=== PATIENT | male | born 1965 | race African-American/Black ===

== ENCOUNTER 2017-12-30 17:54 | Inpatient (IN) | payer OTHER ==
[2017-12-30 21:23] VITALS: BMI 24.2
[2017-12-30] MEDS ORDERED: MELATONIN 5 MG TABLETS PO PRN (22:00)
--- NOTE | 2017-12-30 23:35 | HP ---
CIWA Score - CIWA Score Nausea/Vomitin Muscle Tremors: 4-Moderate,w/Arms Extend Anxiety: 4-Mod. Anxious/Guarded Agitation: 1-Slight > Activity Paroxysmal Sweats: 1-Minimal Palms Moist Orientation: 1-Uncertain about Date Tacttile Disturbances: 0-None Auditory Disturbances: 0-None Visual Disturbances: 0-None Headache: 3-Moderate CIWA-Ar Total Score: 17 Admission ROS S - HPI Chief Complaint: Alcohol withdrawal symptoms Allergies/Adverse Reactions: Allergies Allergy/AdvReac Type Severity Reaction Status Date / Time No Known Allergies Allergy Verified 12/30/17 22:25 History of Present Illness: 52 years old male with a long history of alcohol dependence is seeking admission to detox. Patient has been in previous detox, last at [facility] in [place] and reports 20 days of sobriety when he was in long term. Patient has medical history of GERD, chronic back pain, anemia, brain aneurysm, depression and anxiety. Patient denies suicide attempt and suicidal ideation at this time. Exam Limitations: No Limitations - Ebola screening Have you traveled outside of the country in the last 21 days: No (N) Have you had contact with anyone from an Ebola affected area: No Have you been sick,other than usual withdrawal symptoms: No Do you have a fever: No - Review of Systems Constitutional: Chills, Loss of Appetite, Malaise, Night Sweats, Changes in sleep EENT: reports: No Symptoms Reported Respiratory: reports: No Symptoms reported Cardiac: reports: No Symptoms Reported GI: reports: Nausea, Poor Appetite, Poor Fluid Intake, Abdominal cramping : reports: No Symptoms Reported Musculoskeletal: reports: Back Pain, Joint Pain, Muscle Pain Integumentary: reports: Dryness Neuro: reports: Tremors Endocrine: reports: No Symptoms Reported Hematology: reports: No Symptoms Reported Psychiatric: reports: Anxious, Depressed Other Systems: Reviewed and Negative Patient History - Patient Medical History Hx Anemia: Yes (Not on medication) Hx Asthma: No Hx Chronic Obstructive Pulmonary Disease (COPD): No Hx Cancer: No Hx Cardiac Disorders: No Hx Congestive Heart Failure: No Hx Hypertension: No Hx Hypercholesterolemia: No Hx Pacemaker: No HX Cerebrovascular Accident: No Hx Seizures: No Hx Dementia: No Hx Diabetes: No Hx Gastrointestinal Disorders: Yes (Not on medication) Hx Liver Disease: No Hx Genitourinary Disorders: No Hx Sexually Transmitted Disorders: No Hx Renal Disease (ESRD): No Hx Thyroid Disease: No Hx Human Immunodeficiency Virus (HIV): No (NEGATIVE 2018) Hx Hepatitis C: No Hx Depression: Yes (Not on medication) Hx Suicide Attempt: No Hx Schizophrenia: No Other Medical History: Brain aneurysm, anxiety, chronic back pain- Not on medication - Patient Surgical History Past Surgical History: Yes Hx Neurologic Surgery: No Hx Cataract Extraction: No Hx Cardiac Surgery: No Hx Lung Surgery: No Hx Breast Surgery: No Hx Breast Biopsy: No Hx Abdominal Surgery: No Hx Appendectomy: No Hx Cholecystectomy: No Hx Genitourinary Surgery: No Hx Section: No Hx Orthopedic Surgery: Yes (ARTHROSCOPIC SX OF RIGHT KNEE DUE TO SPORT INJURY A TEEN) Other Surgical History: MEDIALSTERNOSCOPY DUE TO SEVERE ?GERD FEW YEARS AGO Anesthesia Reaction: No - PPD History Date: 07/03/14 - Smoking Cessation Smoking history: Current every day smoker Have you smoked in the past 12 months: Yes Aproximately how many cigarettes per day: 5 Cigars Per Day: 0 Hx Chewing Tobacco Use: No Initiated information on smoking cessation: Yes 'Breaking Loose' booklet given: 01/01/18 - Substances Abused Alcohol Route: Oral Frequency: Daily Amount used: 1 PINT Age of first use: 23 Date of Last Use: 12/30/17 K2 Route: Smoking Frequency: Daily Amount used: 3 JOINTS Age of first use: 49 Date of Last Use: 12/30/17 Family Disease History - Family Disease History Family Disease History: Heart Disease: Mother (EMPHESEMA/ASTHMA-), Respiratory: Mother, Other: Sister Admission Physical Exam [facility] - Vital Signs Vital Signs: Vital Signs - 24 hr 12/30/17 21:21 Temperature 98.9 F Pulse Rate 101 H Respiratory 18 Rate Blood Pressure 132/84 - Physical General Appearance: Yes: Appropriately Dressed, Tremorous, Irritable, Sweating, Anxious HEENTM: Yes: EOMI, Normal ENT Inspection, Normocephalic, Normal Voice, KELLY Respiratory: Yes: Lungs Clear, Normal Breath Sounds, No Respiratory Distress Breast: Yes: Breast Exam Deferred Cardiology: Yes: Tachycardia Abdominal: Yes: Normal Bowel Sounds, Soft Genitourinary: Yes: Within Normal Limits Back: Yes: Normal Inspection Musculoskeletal: Yes: Back pain, Muscle Pain, Muscle weakness Extremities: Yes: Tremors Neurological: Yes: Alert, Normal Mood/Affect, Normal Response Integumentary: Yes: Warm Lymphatic: Yes: Within Normal Limits - Diagnostic (1) Cannabis dependence Current Visit: No Status: Chronic (2) Cocaine dependence Current Visit: No Status: Chronic (3) Essential hypertension Current Visit: No Status: Chronic (4) Anxiety Current Visit: No Status: Suspected (5) Depression Current Visit: No Status: Acute Cleared for Admission [facility] - Detox or Rehab [facility] Level of Care: Medically Managed Detox Regimen/Protocol: Librium [facility] Breath Alcohol Content Breath Alcohol Content: 0 Urine Drug Screen - Results Drug Screen Negative: No Urine Drug Screen Results: BZO-Benzodiazepines, TCA-Tricyclic Antidepress
[2017-12-30] MEDS ORDERED: chlordiazePOXIDE HCL 25 MG CAPSULE PO ONE (23:45)
[2017-12-30] MEDS ORDERED: MENTHOL/PHENOL 1 EACH UD MM PRN (23:46)
[2017-12-30] MEDS ORDERED: P-EPHED 60MG/TRIPROLIDI 2.5MG TABLET PO PRN (23:46)
[2017-12-30] MEDS ORDERED: LOPERAMIDE HCL 2 MG CAPSULE PO PRN (23:46)
[2017-12-30] MEDS ORDERED: MAGNESIUM CITRATE 300 ML BOTTLE PO PRN (23:46)
[2017-12-30] MEDS ORDERED: guaiFENesin/D-METHORPHAN HB 10 ML UNIT-DOSE CUPS PO PRN (23:46)
[2017-12-30] MEDS ORDERED: NICOTINE POLACRILEX 2 MG GUM BC PRN (23:46)
[2017-12-30] MEDS ORDERED: MAGNESIUM HYDROX 2400MG/30ML ORAL SUSPENSION 30 ML CUP PO PRN (23:46)
[2017-12-30] MEDS ORDERED: MAG HYDROX/AL HYDROX/SIMETH 30 ML UNIT-DOSE CUP PO PRN (23:46)
[2017-12-31] MEDS: chlordiazePOXIDE HCL 25 MG CAPSULE PO PRN (02:05)
[2017-12-31] MEDS: ACETAMINOPHEN 325 MG TABLET (FP) PO PRN (02:06)
[2017-12-31] MEDS: chlordiazePOXIDE HCL 25 MG CAPSULE PO SCH ×6 (02:09→22:31)
--- NOTE | 2017-12-31 07:33 | CONSULT ---
[facility] Psychiatric Consult - Data Date of interview: 12/31/17 Admission source: [facility] Identifying data: This is 52 years old male, single, unemployed, domiciled, with no income, with no psychiatric hospitalization history, with a long history of alcohol dependence is repoprting Alcohol withdrawal symptoms and seeking admission to detox. Denies psychiatric hospitalization history , suicidal, homicidal ideation. Substance Abuse History: Smoking history: Current every day smoker. Have you smoked in the past 12 months: Yes. Aproximately how many cigarettes per day: 5. Cigars Per Day: 0. Hx Chewing Tobacco Use: No. - Substances Abused. Alcohol. Route: Oral. Frequency: Daily. Amount used: 1 PINT. Age of first use: 23. Date of Last Use: 12/30/17. K2. Route: Smoking. Frequency: Daily. Amount used: 3 JOINTS. Age of first use: 49. Date of Last Use: Medical History: HTN, Brain Aneurism history, GERD Psychiatric History: Patient reports history of depression and anxiety, reports no medications taking prior to admission, asking for medications aid for his insomnia, reports good response to serouel in the past, denies suicidal and homicidal history. Physical/Sexual Abuse/Trauma History: Denies Additional Comment: Seroquel 100mg po qhs Mental Status Exam - Mental Status Exam Alert and Oriented to: Person Cognitive Function: Fair Patient Appearance: Unkempt Mood: Angry, Anxious Affect: Mood Congruent Patient Behavior: Guarded Speech Pattern: Appropriate Voice Loudness: Mildly Loud Thought Process: Goal Oriented Thought Disorder: Being Controlled Hallucinations: Denies Suicidal Ideation: Denies Homicidal Ideation: Denies Insight/Judgement: Fair Sleep: Difficulty falling asleep Appetite: Fair Muscle strength/Tone: Normal Additional Comments: Seroquel 100mg po qhs Psychiatric Findings - Problem List ([place] 1, 2,3) (1) Alcohol dependence Current Visit: No Status: Active (2) Gastroesophageal reflux disease Current Visit: No Status: Active (3) Cocaine dependence with cocaine-induced mood disorder Current Visit: No Status: Acute (4) Drug-induced mood disorder Current Visit: No Status: Acute (5) HTN (hypertension) Current Visit: No Status: Acute (6) Cannabis dependence Current Visit: No Status: Chronic (7) Essential hypertension Current Visit: No Status: Chronic - Initial Treatment Plan Initial Treatment Plan: Seroquel 100mg po qhs
--- NOTE | 2017-12-31 10:05 | PN ---
BHS CIWA - CIWA Score Nausea/Vomitin Muscle Tremors: 3 Anxiety: 3 Agitation: 2 Paroxysmal Sweats: 1-Minimal Palms Moist Orientation: 0-Oriented Tacttile Disturbances: 1-Very Mild Itch/Numbness Auditory Disturbances: 1-Very Mild Visual Disturbances: 0-None Headache: 2-Mild CIWA-Ar Total Score: 16 BHS Progress Note (SOAP) Subjective: alert,irritable,anxious,,interrupted,pain in the body and back,tremor Objective: 12/31/17 10:03 Vital Signs Temperature 97.9 F 12/31/17 09:25 Pulse Rate 79 12/31/17 09:25 Respiratory Rate 18 12/31/17 09:25 Blood Pressure 134/71 12/31/17 09:25 O2 Sat by Pulse Oximetry (%) 12/31/17 10:04 withdrawal symptom Assessment: 12/31/17 10:05 withdrawal symptom labs pending Plan: continue detox
[2017-12-31 10:37] LABS: CHLORIDE 108 mmol/L (98-107); POTASSIUM 4.4 mmol/L (3.5-5.1); SODIUM 146 mmol/L (136-145)
[2017-12-31 10:52] LABS: ALBUMIN 3.1 g/dl (3.4-5.0); ALK PHOS 45 U/L (45-117); ANION GAP 9 MMOL/L (8-16); BILIRUBIN,TOTAL 0.3 mg/dL (0.2-1.0); BLOOD UREA NITROGEN 17 mg/dL (7-18); CALCIUM 8.6 mg/dL (8.5-10.1); CO2 29 mmol/L (21-32); CREATININE 0.8 mg/dL (0.7-1.3); GLUCOSE,RANDOM 84 mg/dL (74-106); SGOT/AST 22 U/L (15-37); SGPT/ALT 25 U/L (12-78); TOT PROT 6.1 g/dl (6.4-8.2)
[2017-12-31] MEDS: PRENATAL VITAMINS W/ FOLIC ACID TABLET (FP) PO SCH (10:56)
[2017-12-31] MEDS: NICOTINE 14 MG/24 HOURS TOPICAL PATCH TD SCH (10:57)
[2017-12-31 11:07] LABS: HEMOGLOBIN 7.8 GM/dL (11.7-16.9); MCHC 29.9 g/dl (32.0-35.9); MEAN CELL VOLUME 63.1 fl (80-96); MEAN PLT VOLUME 8.4 fl (7.5-11.1); PLATELET COUNT 488 K/MM3 (134-434); RBC 4.11 M/mm3 (4.00-5.60); RDW 22.8 % (11.9-15.9); WHITE BLOOD COUNT 8.4 K/mm3 (4.0-10.0)
[2017-12-31 11:17] LABS: MCH 18.9 pg (25.7-33.7)
[2017-12-31] MEDS: IBUPROFEN 400 MG TABLET (FP) PO PRN (11:51)
[2017-12-31 15:59] LABS: URINE APPEARANCE CLEAR; URINE BILIRUBIN NEGATIVE (<2.0 mg/dL); URINE COLOR YELLOW; URINE GLUCOSE (UA) NEGATIVE (NEGATIVE); URINE KETONE NEGATIVE (NEGATIVE); URINE LEUK ESTERASE NEGATIVE (NEGATIVE); URINE NITRITE NEGATIVE (NEGATIVE); URINE UROBILINOGEN NEGATIVE mg/dL (0.2-1.0)
--- NOTE | 2017-12-31 16:02 | EKG ---
Test Reason : Blood Pressure : / mmHG Vent. Rate : 068 BPM Atrial Rate : 068 BPM P-R Int : 132 ms QRS Dur : 096 ms QT Int : 388 ms P-R-T Axes : 048 055 067 degrees QTc Int : 412 ms NORMAL SINUS RHYTHM VOLTAGE CRITERIA FOR LEFT VENTRICULAR HYPERTROPHY ABNORMAL ECG NO PREVIOUS ECGS AVAILABLE Confirmed by Palma Reeves ([id number]) on 12/31/2017 4:01:29 PM Referred By: Confirmed By:Palma Reeves
[2017-12-31 16:15] LABS: URINE PROTEIN 1+ (NEGATIVE)
[2017-12-31 16:17] LABS: URINE MUCUS RARE
[2017-12-31] MEDS: QUEtiapine FUMARATE 100 MG TABLET (FP) PO SCH (22:31)
[2017-12-31] MEDS: THIAMINE HCL 100 MG TABLET (FP) PO SCH (22:31)
[2018-01-01] MEDS: chlordiazePOXIDE 5 MG CAPSULE PO SCH ×4 (06:20→21:59)
[2018-01-01] MEDS ORDERED: hydrOXYzine PAMOATE 50 MG CAPSULE (FP) PO PRN (10:08)
--- NOTE | 2018-01-01 10:47 | PN ---
S CIWA - CIWA Score Nausea/Vomitin Muscle Tremors: 3 Anxiety: 3 Agitation: 3 Paroxysmal Sweats: 1-Minimal Palms Moist Orientation: 0-Oriented Tacttile Disturbances: 1-Very Mild Itch/Numbness Auditory Disturbances: 1-Very Mild Visual Disturbances: 0-None Headache: 2-Mild CIWA-Ar Total Score: 17 BHS Progress Note (SOAP) Subjective: alert,irritable,anxious,interrupted sleep,history of gerd Objective: 01/01/18 10:44 Vital Signs Temperature 97.0 F L 01/01/18 09:59 Pulse Rate 69 01/01/18 09:59 Respiratory Rate 18 01/01/18 09:59 Blood Pressure 113/65 01/01/18 09:59 O2 Sat by Pulse Oximetry (%) Laboratory Last Values WBC 8.4 K/mm3 (4.0-10.0) 12/31/17 07:00 RBC 4.11 M/mm3 (4.00-5.60) 12/31/17 07:00 Hgb 7.8 GM/dL (11.7-16.9) L 12/31/17 07:00 Hct 26.0 % (35.4-49) L 12/31/17 07:00 MCV 63.1 fl (80-96) L 12/31/17 07:00 MCH 18.9 pg (25.7-33.7) L 12/31/17 07:00 MCHC 29.9 g/dl (32.0-35.9) L 12/31/17 07:00 RDW 22.8 % (11.9-15.9) H 12/31/17 07:00 Plt Count 488 K/MM3 (134-434) H 12/31/17 07:00 MPV 8.4 fl (7.5-11.1) D 12/31/17 07:00 Sodium 146 mmol/L (136-145) H 12/31/17 07:00 Potassium 4.4 mmol/L (3.5-5.1) 12/31/17 07:00 Chloride 108 mmol/L (98-107) H 12/31/17 07:00 Carbon Dioxide 29 mmol/L (21-32) 12/31/17 07:00 Anion Gap 9 MMOL/L (8-16) 12/31/17 07:00 BUN 17 mg/dL (7-18) 12/31/17 07:00 Creatinine 0.8 mg/dL (0.7-1.3) 12/31/17 07:00 Creat Clearance w eGFR > 60 (>60) 12/31/17 07:00 Random Glucose 84 mg/dL (74-106) 12/31/17 07:00 Calcium 8.6 mg/dL (8.5-10.1) 12/31/17 07:00 Total Bilirubin 0.3 mg/dL (0.2-1.0) 12/31/17 07:00 AST 22 U/L (15-37) 12/31/17 07:00 ALT 25 U/L (12-78) 12/31/17 07:00 Alkaline Phosphatase 45 U/L (45-117) 12/31/17 07:00 Total Protein 6.1 g/dl (6.4-8.2) L 12/31/17 07:00 Albumin 3.1 g/dl (3.4-5.0) L 12/31/17 07:00 Urine Color Yellow 12/31/17 11:00 Urine Appearance Clear 12/31/17 11:00 Urine pH 7.0 (5.0-8.0) 12/31/17 11:00 Ur Specific [place] 1.031 (1.001-1.035) 12/31/17 11:00 Urine Protein 1+ (NEGATIVE) H 12/31/17 11:00 Urine Glucose (UA) Negative (NEGATIVE) 12/31/17 11:00 Urine Ketones Negative (NEGATIVE) 12/31/17 11:00 Urine Blood Negative (NEGATIVE) 12/31/17 11:00 Urine Nitrite Negative (NEGATIVE) 12/31/17 11:00 Urine Bilirubin Negative (<2.0 mg/dL) 12/31/17 11:00 Urine Urobilinogen Negative mg/dL (0.2-1.0) 12/31/17 11:00 Ur Leukocyte Esterase Negative (NEGATIVE) 12/31/17 11:00 Urine WBC (Auto) 2 /hpf (3-5) 12/31/17 11:00 Urine RBC (Auto) 1 /hpf (0-3) 12/31/17 11:00 Urine Mucus Rare 12/31/17 11:00 RPR Titer Nonreactive (NONREACTIVE) 12/31/17 07:00 Assessment: 01/01/18 10:46 withdrawal symptom Plan: continue detox,ferrous sulfate 325 mgs po tid,zantac 150 mgs po bid
[2018-01-01] MEDS: PRENATAL VITAMINS W/ FOLIC ACID TABLET (FP) PO SCH (10:50)
[2018-01-01] MEDS: NICOTINE 14 MG/24 HOURS TOPICAL PATCH TD SCH (10:51)
[2018-01-01] MEDS: IBUPROFEN 400 MG TABLET (FP) PO PRN (10:53)
[2018-01-01] MEDS: RANITIDINE HCL 150 MG TABLET (FP) PO SCH ×2 (11:30→21:59)
[2018-01-01] MEDS: FERROUS SO4 325 MG TABLET (FP) PO SCH ×2 (13:00→17:37)
[2018-01-01] MEDS: THIAMINE HCL 100 MG TABLET (FP) PO SCH (21:59)
[2018-01-01] MEDS: QUEtiapine FUMARATE 100 MG TABLET (FP) PO SCH (21:59)
[2018-01-02] MEDS: chlordiazePOXIDE HCL 10 MG CAPSULE PO SCH ×4 (05:51→23:22)
[2018-01-02] MEDS: FERROUS SO4 325 MG TABLET (FP) PO SCH ×3 (07:36→20:25)
[2018-01-02] MEDS: PRENATAL VITAMINS W/ FOLIC ACID TABLET (FP) PO SCH (11:27)
[2018-01-02] MEDS: NICOTINE 14 MG/24 HOURS TOPICAL PATCH TD SCH (11:27)
--- NOTE | 2018-01-02 11:34 | PN ---
S CIWA - CIWA Score Nausea/Vomitin Muscle Tremors: 2 Anxiety: 2 Agitation: 2 Paroxysmal Sweats: 2 Orientation: 0-Oriented Tacttile Disturbances: 2-Mild Itch/Numbness/Burn Auditory Disturbances: 1-Very Mild Visual Disturbances: 1-Very Mild Sensitivity Headache: 2-Mild CIWA-Ar Total Score: 16 S Progress Note (SOAP) Subjective: Irritability, agitation, interrupted sleep, muscle aches Objective: 01/02/18 11:33 Vital Signs 01/02/18 01/02/18 06:00 09:19 Temperature 97.7 F 97.9 F Pulse Rate 70 84 Respiratory 18 18 Rate Blood Pressure 138/82 144/98 Laboratory Last Values WBC 8.4 K/mm3 (4.0-10.0) 12/31/17 07:00 RBC 4.11 M/mm3 (4.00-5.60) 12/31/17 07:00 Hgb 7.8 GM/dL (11.7-16.9) L 12/31/17 07:00 Hct 26.0 % (35.4-49) L 12/31/17 07:00 MCV 63.1 fl (80-96) L 12/31/17 07:00 MCH 18.9 pg (25.7-33.7) L 12/31/17 07:00 MCHC 29.9 g/dl (32.0-35.9) L 12/31/17 07:00 RDW 22.8 % (11.9-15.9) H 12/31/17 07:00 Plt Count 488 K/MM3 (134-434) H 12/31/17 07:00 MPV 8.4 fl (7.5-11.1) D 12/31/17 07:00 Sodium 146 mmol/L (136-145) H 12/31/17 07:00 Potassium 4.4 mmol/L (3.5-5.1) 12/31/17 07:00 Chloride 108 mmol/L (98-107) H 12/31/17 07:00 Carbon Dioxide 29 mmol/L (21-32) 12/31/17 07:00 Anion Gap 9 MMOL/L (8-16) 12/31/17 07:00 BUN 17 mg/dL (7-18) 12/31/17 07:00 Creatinine 0.8 mg/dL (0.7-1.3) 12/31/17 07:00 Creat Clearance w eGFR > 60 (>60) 12/31/17 07:00 Random Glucose 84 mg/dL (74-106) 12/31/17 07:00 Calcium 8.6 mg/dL (8.5-10.1) 12/31/17 07:00 Total Bilirubin 0.3 mg/dL (0.2-1.0) 12/31/17 07:00 AST 22 U/L (15-37) 12/31/17 07:00 ALT 25 U/L (12-78) 12/31/17 07:00 Alkaline Phosphatase 45 U/L (45-117) 12/31/17 07:00 Total Protein 6.1 g/dl (6.4-8.2) L 12/31/17 07:00 Albumin 3.1 g/dl (3.4-5.0) L 12/31/17 07:00 Urine Color Yellow 12/31/17 11:00 Urine Appearance Clear 12/31/17 11:00 Urine pH 7.0 (5.0-8.0) 12/31/17 11:00 Ur Specific [place] 1.031 (1.001-1.035) 12/31/17 11:00 Urine Protein 1+ (NEGATIVE) H 12/31/17 11:00 Urine Glucose (UA) Negative (NEGATIVE) 12/31/17 11:00 Urine Ketones Negative (NEGATIVE) 12/31/17 11:00 Urine Blood Negative (NEGATIVE) 12/31/17 11:00 Urine Nitrite Negative (NEGATIVE) 12/31/17 11:00 Urine Bilirubin Negative (<2.0 mg/dL) 12/31/17 11:00 Urine Urobilinogen Negative mg/dL (0.2-1.0) 12/31/17 11:00 Ur Leukocyte Esterase Negative (NEGATIVE) 12/31/17 11:00 Urine WBC (Auto) 2 /hpf (3-5) 12/31/17 11:00 Urine RBC (Auto) 1 /hpf (0-3) 12/31/17 11:00 Urine Mucus Rare 12/31/17 11:00 RPR Titer Nonreactive (NONREACTIVE) 12/31/17 07:00 Labs noted Assessment: 08/25/18 11:33 Withdrawal sx Plan: Continue detox
[2018-01-02] MEDS: RANITIDINE HCL 150 MG TABLET (FP) PO SCH ×2 (20:24→23:22)
[2018-01-02] MEDS: chlordiazePOXIDE HCL 25 MG CAPSULE PO PRN (23:20)
[2018-01-02] MEDS: QUEtiapine FUMARATE 100 MG TABLET (FP) PO SCH (23:22)
[2018-01-02] MEDS: THIAMINE HCL 100 MG TABLET (FP) PO SCH (23:22)
[2018-01-03] MEDS: FERROUS SO4 325 MG TABLET (FP) PO SCH ×3 (08:30→18:12)
[2018-01-03] MEDS: RANITIDINE HCL 150 MG TABLET (FP) PO SCH ×2 (10:30→22:32)
[2018-01-03] MEDS: NICOTINE 14 MG/24 HOURS TOPICAL PATCH TD SCH (10:30)
[2018-01-03] MEDS: PRENATAL VITAMINS W/ FOLIC ACID TABLET (FP) PO SCH (10:30)
[2018-01-03] MEDS: IBUPROFEN 400 MG TABLET (FP) PO PRN (10:32)
--- NOTE | 2018-01-03 12:50 | PN ---
BHS Progress Note (SOAP) Subjective: States feels better. Minimal tremors. Denies nausea/vomiting/diarrhea/headache. Objective: Alert and oriented x 3. Respirations quiet and unlabored. Gait steady. Lab Results WBC 8.4 K/mm3 (4.0-10.0) 12/31/17 07:00 RBC 4.11 M/mm3 (4.00-5.60) 12/31/17 07:00 Hgb 7.8 GM/dL (11.7-16.9) L 12/31/17 07:00 Hct 26.0 % (35.4-49) L 12/31/17 07:00 MCV 63.1 fl (80-96) L 12/31/17 07:00 MCHC 29.9 g/dl (32.0-35.9) L 12/31/17 07:00 RDW 22.8 % (11.9-15.9) H 12/31/17 07:00 Plt Count 488 K/MM3 (134-434) H 12/31/17 07:00 Sodium 146 mmol/L (136-145) H 12/31/17 07:00 Potassium 4.4 mmol/L (3.5-5.1) 12/31/17 07:00 Chloride 108 mmol/L (98-107) H 12/31/17 07:00 Carbon Dioxide 29 mmol/L (21-32) 12/31/17 07:00 Anion Gap 9 MMOL/L (8-16) 12/31/17 07:00 BUN 17 mg/dL (7-18) 12/31/17 07:00 Creatinine 0.8 mg/dL (0.7-1.3) 12/31/17 07:00 Random Glucose 84 mg/dL (74-106) 12/31/17 07:00 Calcium 8.6 mg/dL (8.5-10.1) 12/31/17 07:00 Vital Signs 01/03/18 01/03/18 01/03/18 06:00 06:30 10:00 Temperature 97.3 F L 98.8 F Pulse Rate 67 75 Respiratory 18 18 16 Rate Blood Pressure 120/72 123/88 Labs and v/s reviewed. 01/03/18 12:47 Assessment: 01/03/18 12:48 Alcohol withdrawal symptoms. Plan: Continue detox protocol.
[2018-01-03] MEDS: THIAMINE HCL 100 MG TABLET (FP) PO SCH (22:32)
[2018-01-03] MEDS: QUEtiapine FUMARATE 100 MG TABLET (FP) PO SCH (22:32)
[2018-01-03] MEDS: ACETAMINOPHEN 325 MG TABLET (FP) PO PRN (22:33)
[2018-01-04] MEDS: IBUPROFEN 400 MG TABLET (FP) PO PRN (06:59)
[2018-01-04] MEDS: FERROUS SO4 325 MG TABLET (FP) PO SCH ×2 (07:06→13:05)
--- NOTE | 2018-01-04 09:06 | PN ---
S Progress Note (SOAP) Subjective: alert,no complaint Objective: 01/04/18 09:04 Vital Signs Temperature 98.1 F 01/04/18 07:43 Pulse Rate 72 01/04/18 07:43 Respiratory Rate 18 01/04/18 07:43 Blood Pressure 150/97 01/04/18 07:43 O2 Sat by Pulse Oximetry (%) Assessment: 01/04/18 09:04 detox completed,no withdrawal symptom Plan: discharge today,follow up with after are program as arrangement
--- NOTE | 2018-01-04 09:09 | DS ---
[facility] Detox Discharge Summary Admission Date: 12/30/17 Discharge Date: 01/04/18 - History Present History: Alcohol Dependence, Cannabis Dependence, Cocaine Dependence Additional Comments: follow up with after care program as arrangement,revelation Pertinent Past History: essential hypertension gerd depression drug induced mood disorder - Physical Exam Results Vital Signs: Vital Signs Temperature 98.1 F 01/04/18 07:43 Pulse Rate 72 01/04/18 07:43 Respiratory Rate 18 01/04/18 07:43 Blood Pressure 150/97 01/04/18 07:43 O2 Sat by Pulse Oximetry (%) Pertinent Admission Physical Exam Findings: withdrawal signs and symptom Vital Signs Temperature 98.1 F 01/04/18 07:43 Pulse Rate 72 01/04/18 07:43 Respiratory Rate 18 01/04/18 07:43 Blood Pressure 150/97 01/04/18 07:43 O2 Sat by Pulse Oximetry (%) Laboratory Last Values WBC 8.4 K/mm3 (4.0-10.0) 12/31/17 07:00 RBC 4.11 M/mm3 (4.00-5.60) 12/31/17 07:00 Hgb 7.8 GM/dL (11.7-16.9) L 12/31/17 07:00 Hct 26.0 % (35.4-49) L 12/31/17 07:00 MCV 63.1 fl (80-96) L 12/31/17 07:00 MCH 18.9 pg (25.7-33.7) L 12/31/17 07:00 MCHC 29.9 g/dl (32.0-35.9) L 12/31/17 07:00 RDW 22.8 % (11.9-15.9) H 12/31/17 07:00 Plt Count 488 K/MM3 (134-434) H 12/31/17 07:00 MPV 8.4 fl (7.5-11.1) D 12/31/17 07:00 Sodium 146 mmol/L (136-145) H 12/31/17 07:00 Potassium 4.4 mmol/L (3.5-5.1) 12/31/17 07:00 Chloride 108 mmol/L (98-107) H 12/31/17 07:00 Carbon Dioxide 29 mmol/L (21-32) 12/31/17 07:00 Anion Gap 9 MMOL/L (8-16) 12/31/17 07:00 BUN 17 mg/dL (7-18) 12/31/17 07:00 Creatinine 0.8 mg/dL (0.7-1.3) 12/31/17 07:00 Creat Clearance w eGFR > 60 (>60) 12/31/17 07:00 Random Glucose 84 mg/dL (74-106) 12/31/17 07:00 Calcium 8.6 mg/dL (8.5-10.1) 12/31/17 07:00 Total Bilirubin 0.3 mg/dL (0.2-1.0) 12/31/17 07:00 AST 22 U/L (15-37) 12/31/17 07:00 ALT 25 U/L (12-78) 12/31/17 07:00 Alkaline Phosphatase 45 U/L (45-117) 12/31/17 07:00 Total Protein 6.1 g/dl (6.4-8.2) L 12/31/17 07:00 Albumin 3.1 g/dl (3.4-5.0) L 12/31/17 07:00 Urine Color Yellow 12/31/17 11:00 Urine Appearance Clear 12/31/17 11:00 Urine pH 7.0 (5.0-8.0) 12/31/17 11:00 Ur Specific [place] 1.031 (1.001-1.035) 12/31/17 11:00 Urine Protein 1+ (NEGATIVE) H 12/31/17 11:00 Urine Glucose (UA) Negative (NEGATIVE) 12/31/17 11:00 Urine Ketones Negative (NEGATIVE) 12/31/17 11:00 Urine Blood Negative (NEGATIVE) 12/31/17 11:00 Urine Nitrite Negative (NEGATIVE) 12/31/17 11:00 Urine Bilirubin Negative (<2.0 mg/dL) 12/31/17 11:00 Urine Urobilinogen Negative mg/dL (0.2-1.0) 12/31/17 11:00 Ur Leukocyte Esterase Negative (NEGATIVE) 12/31/17 11:00 Urine WBC (Auto) 2 /hpf (3-5) 12/31/17 11:00 Urine RBC (Auto) 1 /hpf (0-3) 12/31/17 11:00 Urine Mucus Rare 12/31/17 11:00 RPR Titer Nonreactive (NONREACTIVE) 12/31/17 07:00 - Treatment Hospital Course: Detox Protocol Followed, Detoxed Safely, Responded well, Discharged Condition Good, Rehab Referral Accepted Patient has Accepted a Rehab Referral to: [facility] - Medication Discharge Medications: Ambulatory Orders Quetiapine Fumarate [Seroquel] 100 mg PO HS #30 tablet 12/31/17 - Diagnosis (1) Alcohol dependence with uncomplicated withdrawal Current Visit: Yes Status: Acute (2) Cocaine dependence with cocaine-induced mood disorder Current Visit: No Status: Acute (3) Depression Current Visit: No Status: Acute (4) Drug-induced mood disorder Current Visit: No Status: Acute (5) Cannabis dependence Current Visit: No Status: Chronic (6) Essential hypertension Current Visit: No Status: Chronic (7) History of anemia Current Visit: Yes Status: Acute (8) GERD (gastroesophageal reflux disease) Current Visit: Yes Status: Acute - AMA Did Patient Leave Against Medical Advice: No
[2018-01-04] MEDS: PRENATAL VITAMINS W/ FOLIC ACID TABLET (FP) PO SCH (10:34)
[2018-01-04] MEDS: RANITIDINE HCL 150 MG TABLET (FP) PO SCH (10:35)
[2018-01-04] MEDS: NICOTINE 14 MG/24 HOURS TOPICAL PATCH TD SCH (10:35)
[2018-01-04 13:11] VITALS: BP 135/72; PULSE 84; TEMP 98.4
== END 2018-01-04 13:05 | disposition other institution (70) | DRG 774 ==
LOC: YASAS 17:54 → Y6N 22:44
PROVIDERS: ADMIT Surgery; ATTEND Surgery
PROC: HZ2ZZZZ Detoxification Services for Substance Abuse Treatment (ICD-10-PCS; principal; 2017-12-30)
DX: F10.230 Alcohol dependence with withdrawal, uncomplicated (principal); F14.24 Cocaine dependence with cocaine-induced mood disorder; F12.20 Cannabis dependence, uncomplicated; F17.213 Nicotine dependence, cigarettes, with withdrawal; F19.24 Other psychoactive substance dependence with psychoactive substance-induced mood disorder; F32.9 Major depressive disorder, single episode, unspecified; F41.9 Anxiety disorder, unspecified; I10 Essential (primary) hypertension; K21.9 Gastro-esophageal reflux disease without esophagitis; D64.9 Anemia, unspecified; M54.9 Dorsalgia, unspecified; G89.29 Other chronic pain; Z86.79 Personal history of other diseases of the circulatory system; Z59.0 Homelessness
CPT/HCPCS: 36415; 80053; 81003; 81015; 85027; 86593; 93005; 93010

== ENCOUNTER 2018-01-04 13:10 | Inpatient (IN) | payer OTHER ==
[2018-01-04 14:02] VITALS: BMI 24.2
--- NOTE | 2018-01-04 15:30 | HP ---
Psychiatrist Admission - Data Date of interview: 01/04/18 Admission source: [address] [place] [address] detox Identifying data: This si the first admsission to [address] [place] [address] for this 52 yo single no children,homeless,no financial support. Medical History: Significant for HTN,GERD,Anemia. Psychiatric History: Patient reports depression,anxiety for a few years,but didnt addressed his issues to the professionals. No psychiatric hospitalizations.No history of suicidality.patient is not willing to take psychotropic medications. Physical/Sexual Abuse/Trauma History: not willing to discuss at this time. Vital Signs: Vital Signs - 24 hr 01/04/18 13:38 Temperature 99 F Pulse Rate 85 Respiratory 18 Rate Blood Pressure 124/83 Allergies/Adverse Reactions: Allergies Allergy/AdvReac Type Severity Reaction Status Date / Time No Known Allergies Allergy Verified 12/30/17 22:25 Date of last physical exam: 12/30/17 Concur with the findings of this exam: Yes - Substance Abuse/Tx History Hx Alcohol Use: Yes (reports drinking since 23 yo,1 pint of vodka daily) Hx Substance Use: Yes (K2 since 49 yo,2 joints daily) Substance Use Type: Alcohol, Cocaine, Marijuana Hx Substance Use Treatment: Yes (completed 28 days inpatient at [facility] about 4 yo) Mental Status Exam - Mental Status Exam Alert and Oriented to: Time, Place, Person Cognitive Function: Grossly Intact Patient Appearance: Unkempt Mood: Irritable Affect: Mood Congruent, Labile Patient Behavior: Cooperative Speech Pattern: Clear Voice Loudness: Normal Thought Process: Goal Oriented Thought Disorder: Not Present Hallucinations: Denies Suicidal Ideation: Denies Homicidal Ideation: Denies Insight/Judgement: Poor Sleep: Fair Appetite: Good Muscle strength/Tone: Normal Gait/Station: Normal Psychiatric Findings - Problem List ([place] 1, 2,3) (1) Alcohol dependence Current Visit: Yes Status: Chronic (2) Cannabis dependence Current Visit: Yes Status: Chronic (3) Cocaine dependence Current Visit: Yes Status: Chronic (4) Essential hypertension Current Visit: Yes Status: Chronic (5) Gastroesophageal reflux disease Current Visit: Yes Status: Chronic (6) HTN (hypertension) Current Visit: Yes Status: Chronic Qualifiers: Hypertension type: essential hypertension Qualified Code(s): I10 - Essential (primary) hypertension - Initial Treatment Plan Initial Treatment Plan: Will monitor progress.
[2018-01-04] MEDS ORDERED: hydrOXYzine PAMOATE 50 MG CAPSULE (FP) PO PRN (16:38)
[2018-01-04] MEDS ORDERED: guaiFENesin/D-METHORPHAN HB 10 ML UNIT-DOSE CUPS PO PRN (16:38)
[2018-01-04] MEDS ORDERED: MENTHOL/PHENOL 1 EACH UD MM PRN (16:38)
[2018-01-04] MEDS ORDERED: NICOTINE POLACRILEX 2 MG GUM BUC PRN (16:38)
[2018-01-04] MEDS ORDERED: MAGNESIUM HYDROX 2400MG/30ML ORAL SUSPENSION 30 ML CUP PO PRN (16:38)
[2018-01-04] MEDS ORDERED: LOPERAMIDE HCL 2 MG CAPSULE PO PRN (16:38)
[2018-01-04] MEDS ORDERED: P-EPHED 60MG/TRIPROLIDI 2.5MG TABLET PO PRN (16:38)
[2018-01-04] MEDS ORDERED: MAGNESIUM CITRATE 300 ML BOTTLE PO PRN (16:38)
[2018-01-04] MEDS ORDERED: MAG HYDROX/AL HYDROX/SIMETH 30 ML UNIT-DOSE CUP PO PRN (16:38)
--- NOTE | 2018-01-04 16:38 | HP ---
[facility] Rehab Assess/Revision - Admission History Admitted to Rehab from: [facility] Date of Admission to Rehab: 01/04/18 - Vital signs Vital Signs: Vital Signs Period Temp Pulse Resp BP Sys/[place]son Pulse Ox Last 24 Hr 99 F 85 18 124/83 - Findings Detox History & Physical reviewed: Yes Concur with findings: Yes Comments/Additional Findings: for rehab as protocol Inpatient Rehab Admission - Initial Determination Are CD services needed?: Yes Free of communicable disease: Yes Not in need of hospitalization: Yes - Rehab Admission Criteria Previous failed treatment: Yes Poor recovery environment: Yes Comorbidities: Yes Lacks judgement: No Patient is meeting Inpatient Rehab admission criteria:: Yes
[2018-01-04] MEDS ORDERED: QUEtiapine FUMARATE 100 MG TABLET (FP) PO SCH (22:00)
[2018-01-04] MEDS: QUEtiapine FUMARATE 100 MG TABLET (FP) PO SCH (22:12)
[2018-01-04] MEDS: THIAMINE HCL 100 MG TABLET (FP) PO SCH (22:13)
[2018-01-05] MEDS: IBUPROFEN 400 MG TABLET (FP) PO PRN (06:43)
[2018-01-05] MEDS: PRENATAL VITAMINS W/ FOLIC ACID TABLET (FP) PO SCH (10:26)
--- NOTE | 2018-01-05 13:30 | PN ---
S Progress Note Note: Vital Signs Temperature 99.5 F 01/05/18 07:17 Pulse Rate 78 01/05/18 07:17 Respiratory Rate 18 01/05/18 07:17 Blood Pressure 134/90 01/05/18 07:17 O2 Sat by Pulse Oximetry (%) Patient c/o of acid reflux, ongoing hiccups, and back pain. patient Aox3 no distress, anxious no adventitious breath sounds BS x 4, belching full ROM ambulating in the unit -GERD - abnormal labs = hemoglobin 7.8 : repeat labs - back pain Plan: protonix BID lidocaine patch flexeril PRN increase fluids repeat CBC continue to monitor
[2018-01-05] MEDS: CYCLOBENZAPRINE HCL 10 MG TABLET (FP) PO SCH ×2 (14:31→21:39)
[2018-01-05] MEDS: LIDOCAINE 5% TOPICAL PATCH TP SCH (14:31)
[2018-01-05] MEDS: PANTOPRAZOLE 20 MG TABLET (FP) PO SCH (21:39)
[2018-01-05] MEDS: THIAMINE HCL 100 MG TABLET (FP) PO SCH (21:39)
[2018-01-05] MEDS: QUEtiapine FUMARATE 100 MG TABLET (FP) PO SCH (21:39)
[2018-01-05] MEDS: LIDOCAINE PATCH REMOVAL MC SCH (21:40)
[2018-01-06] MEDS: IBUPROFEN 400 MG TABLET (FP) PO PRN (02:47)
[2018-01-06] MEDS: CYCLOBENZAPRINE HCL 10 MG TABLET (FP) PO SCH ×3 (06:26→21:49)
[2018-01-06 10:04] LABS: BASO % 0.8 % (0-2.0); EOS % 1.2 % (0-4.5); HEMATOCRIT 26.3 % (35.4-49); HEMOGLOBIN 7.6 GM/dL (11.7-16.9); LYMPH % 14.8 % (8-40); MCHC 28.8 g/dl (32.0-35.9); MEAN CELL VOLUME 64.5 fl (80-96); MEAN PLT VOLUME 8.3 fl (7.5-11.1); MONO % 8.7 % (3.8-10.2); NEUT % 74.5 % (42.8-82.8); PLATELET COUNT 442 K/MM3 (134-434); RBC 4.08 M/mm3 (4.00-5.60); RDW 23.5 % (11.9-15.9); WHITE BLOOD COUNT 8.8 K/mm3 (4.0-10.0)
[2018-01-06 10:18] LABS: MCH 18.6 pg (25.7-33.7)
[2018-01-06] MEDS: PANTOPRAZOLE 20 MG TABLET (FP) PO SCH ×2 (10:27→21:49)
[2018-01-06] MEDS: LIDOCAINE 5% TOPICAL PATCH TP SCH (10:27)
[2018-01-06] MEDS: PRENATAL VITAMINS W/ FOLIC ACID TABLET (FP) PO SCH (10:27)
--- NOTE | 2018-01-06 12:47 | PN ---
[facility] Progress Note Note: Vital Signs Temperature 98.5 F 01/06/18 06:52 Pulse Rate 81 01/06/18 06:52 Respiratory Rate 18 01/06/18 06:52 Blood Pressure 142/90 01/06/18 06:52 O2 Sat by Pulse Oximetry (%) Laboratory Last Values WBC 8.8 K/mm3 (4.0-10.0) 01/06/18 07:00 RBC 4.08 M/mm3 (4.00-5.60) 01/06/18 07:00 Hgb 7.6 GM/dL (11.7-16.9) L 01/06/18 07:00 Hct 26.3 % (35.4-49) L 01/06/18 07:00 MCV 64.5 fl (80-96) L 01/06/18 07:00 MCH 18.6 pg (25.7-33.7) L 01/06/18 07:00 MCHC 28.8 g/dl (32.0-35.9) L 01/06/18 07:00 RDW 23.5 % (11.9-15.9) H 01/06/18 07:00 Plt Count 442 K/MM3 (134-434) H 01/06/18 07:00 MPV 8.3 fl (7.5-11.1) 01/06/18 07:00 Absolute Neuts (auto) 6.5 K/mm3 (1.5-8.0) 01/06/18 07:00 Neutrophils % 74.5 % (42.8-82.8) 01/06/18 07:00 Lymphocytes % 14.8 % (8-40) 01/06/18 07:00 Monocytes % 8.7 % (3.8-10.2) 01/06/18 07:00 Eosinophils % 1.2 % (0-4.5) 01/06/18 07:00 Basophils % 0.8 % (0-2.0) 01/06/18 07:00 Nucleated RBC % 0 % (0-0) 01/06/18 07:00 Patient with hx of anemia, will start iron po therapy continue to monitor
[2018-01-06 14:01] LABS: ANISOCYTOSIS 3+; MACROCYTOSIS 0; OVALOCYTE 1+; PLATELET ESTIMATE NORMAL
[2018-01-06] MEDS: THIAMINE HCL 100 MG TABLET (FP) PO SCH (21:49)
[2018-01-06] MEDS: QUEtiapine FUMARATE 100 MG TABLET (FP) PO SCH (21:49)
[2018-01-06] MEDS: LIDOCAINE PATCH REMOVAL MC SCH (21:50)
[2018-01-07] MEDS: IBUPROFEN 400 MG TABLET (FP) PO PRN ×2 (02:07→10:52)
[2018-01-07] MEDS: CYCLOBENZAPRINE HCL 10 MG TABLET (FP) PO SCH ×3 (06:31→21:57)
[2018-01-07] MEDS: PANTOPRAZOLE 20 MG TABLET (FP) PO SCH ×2 (10:50→21:57)
[2018-01-07] MEDS: PRENATAL VITAMINS W/ FOLIC ACID TABLET (FP) PO SCH (10:51)
[2018-01-07] MEDS: FERROUS GLUCONATE 324 MG TAB (FP) PO SCH (10:53)
[2018-01-07] MEDS: LIDOCAINE 5% TOPICAL PATCH TP SCH (10:54)
[2018-01-07] MEDS: QUEtiapine FUMARATE 100 MG TABLET (FP) PO SCH (21:57)
[2018-01-07] MEDS: DOCUSATE SODIUM 100 MG CAPSULE (FP) PO SCH (21:57)
[2018-01-07] MEDS: THIAMINE HCL 100 MG TABLET (FP) PO SCH (21:57)
[2018-01-07] MEDS: LIDOCAINE PATCH REMOVAL MC SCH (22:09)
[2018-01-08] MEDS: CYCLOBENZAPRINE HCL 10 MG TABLET (FP) PO SCH ×3 (06:05→21:40)
[2018-01-08] MEDS: PRENATAL VITAMINS W/ FOLIC ACID TABLET (FP) PO SCH (10:28)
[2018-01-08] MEDS: FERROUS GLUCONATE 324 MG TAB (FP) PO SCH (10:28)
[2018-01-08] MEDS: PANTOPRAZOLE 20 MG TABLET (FP) PO SCH ×2 (10:28→21:40)
[2018-01-08] MEDS: LIDOCAINE 5% TOPICAL PATCH TP SCH (11:07)
[2018-01-08] MEDS: ACETAMINOPHEN 325 MG TABLET (FP) PO PRN (14:11)
[2018-01-08] MEDS: QUEtiapine FUMARATE 100 MG TABLET (FP) PO SCH (21:40)
[2018-01-08] MEDS: DOCUSATE SODIUM 100 MG CAPSULE (FP) PO SCH (21:40)
[2018-01-08] MEDS: THIAMINE HCL 100 MG TABLET (FP) PO SCH (21:40)
[2018-01-08] MEDS: LIDOCAINE PATCH REMOVAL MC SCH (21:41)
[2018-01-09] MEDS: CYCLOBENZAPRINE HCL 10 MG TABLET (FP) PO SCH ×3 (06:44→22:08)
[2018-01-09] MEDS: IBUPROFEN 400 MG TABLET (FP) PO PRN (06:44)
[2018-01-09] MEDS: PRENATAL VITAMINS W/ FOLIC ACID TABLET (FP) PO SCH (10:26)
[2018-01-09] MEDS: FERROUS GLUCONATE 324 MG TAB (FP) PO SCH (10:26)
[2018-01-09] MEDS: LIDOCAINE 5% TOPICAL PATCH TP SCH (10:26)
[2018-01-09] MEDS: PANTOPRAZOLE 20 MG TABLET (FP) PO SCH ×2 (10:27→22:08)
[2018-01-09] MEDS: DOCUSATE SODIUM 100 MG CAPSULE (FP) PO SCH (22:08)
[2018-01-09] MEDS: THIAMINE HCL 100 MG TABLET (FP) PO SCH (22:08)
[2018-01-09] MEDS: LIDOCAINE PATCH REMOVAL MC SCH (22:08)
[2018-01-09] MEDS: QUEtiapine FUMARATE 100 MG TABLET (FP) PO SCH (22:08)
[2018-01-10] MEDS: CYCLOBENZAPRINE HCL 10 MG TABLET (FP) PO SCH ×3 (06:22→22:04)
[2018-01-10] MEDS: PANTOPRAZOLE 20 MG TABLET (FP) PO SCH ×2 (10:12→22:04)
[2018-01-10] MEDS: LIDOCAINE 5% TOPICAL PATCH TP SCH (10:12)
[2018-01-10] MEDS: PRENATAL VITAMINS W/ FOLIC ACID TABLET (FP) PO SCH (10:12)
[2018-01-10] MEDS: FERROUS GLUCONATE 324 MG TAB (FP) PO SCH (10:14)
--- NOTE | 2018-01-10 17:39 | PN ---
S Progress Note Note: Asked to see pt who states that he has inguinal hernias. Pt states he has had bilateral inguinal hernias for 2 years, there is no recent change in size, and no change in pain. Says was seen at [facility] for this and no surgery was suggested to pt. PE 2" X 3" long firm masses noted at groin- minimally tender, no redness, no edema. Ass: bilateral hernias- stable in size/shape per pt, f/u PCP Vital Signs - 24 hr 01/10/18 01/10/18 01/10/18 00:30 03:30 06:52 Temperature 98.8 F Pulse Rate 74 Respiratory 18 18 16 Rate Blood Pressure 144/90
[2018-01-10] MEDS: ACETAMINOPHEN 325 MG TABLET (FP) PO PRN (18:13)
[2018-01-10] MEDS: DOCUSATE SODIUM 100 MG CAPSULE (FP) PO SCH (22:03)
[2018-01-10] MEDS: MELATONIN 5 MG TABLETS PO PRN (22:04)
[2018-01-10] MEDS: THIAMINE HCL 100 MG TABLET (FP) PO SCH (22:04)
[2018-01-10] MEDS: QUEtiapine FUMARATE 100 MG TABLET (FP) PO SCH (22:04)
[2018-01-10] MEDS: LIDOCAINE PATCH REMOVAL MC SCH (22:04)
[2018-01-11] MEDS: CYCLOBENZAPRINE HCL 10 MG TABLET (FP) PO SCH ×3 (06:08→22:04)
[2018-01-11] MEDS: PANTOPRAZOLE 20 MG TABLET (FP) PO SCH ×2 (10:10→22:04)
[2018-01-11] MEDS: PRENATAL VITAMINS W/ FOLIC ACID TABLET (FP) PO SCH (10:10)
[2018-01-11] MEDS: FERROUS GLUCONATE 324 MG TAB (FP) PO SCH (10:11)
[2018-01-11] MEDS: LIDOCAINE 5% TOPICAL PATCH TP SCH (10:11)
[2018-01-11] MEDS: THIAMINE HCL 100 MG TABLET (FP) PO SCH (22:04)
[2018-01-11] MEDS: QUEtiapine FUMARATE 100 MG TABLET (FP) PO SCH (22:04)
[2018-01-11] MEDS: DOCUSATE SODIUM 100 MG CAPSULE (FP) PO SCH (22:05)
[2018-01-11] MEDS: LIDOCAINE PATCH REMOVAL MC SCH (22:05)
[2018-01-12] MEDS: ACETAMINOPHEN 325 MG TABLET (FP) PO PRN (06:12)
[2018-01-12] MEDS: CYCLOBENZAPRINE HCL 10 MG TABLET (FP) PO SCH ×3 (06:13→21:41)
[2018-01-12] MEDS: FERROUS GLUCONATE 324 MG TAB (FP) PO SCH (10:55)
[2018-01-12] MEDS: PRENATAL VITAMINS W/ FOLIC ACID TABLET (FP) PO SCH (10:55)
[2018-01-12] MEDS: LIDOCAINE 5% TOPICAL PATCH TP SCH (10:55)
[2018-01-12] MEDS: PANTOPRAZOLE 20 MG TABLET (FP) PO SCH ×2 (10:55→21:41)
[2018-01-12] MEDS: IBUPROFEN 400 MG TABLET (FP) PO PRN (10:56)
[2018-01-12] MEDS: THIAMINE HCL 100 MG TABLET (FP) PO SCH (21:41)
[2018-01-12] MEDS: QUEtiapine FUMARATE 100 MG TABLET (FP) PO SCH (21:41)
[2018-01-12] MEDS: LIDOCAINE PATCH REMOVAL MC SCH (21:42)
[2018-01-12] MEDS: DOCUSATE SODIUM 100 MG CAPSULE (FP) PO SCH (21:42)
[2018-01-13] MEDS: CYCLOBENZAPRINE HCL 10 MG TABLET (FP) PO SCH ×4 (06:36→23:16)
[2018-01-13] MEDS: PANTOPRAZOLE 20 MG TABLET (FP) PO SCH ×3 (10:17→23:16)
[2018-01-13] MEDS: PRENATAL VITAMINS W/ FOLIC ACID TABLET (FP) PO SCH (10:17)
[2018-01-13] MEDS: FERROUS GLUCONATE 324 MG TAB (FP) PO SCH (10:18)
[2018-01-13] MEDS: LIDOCAINE 5% TOPICAL PATCH TP SCH (10:18)
--- NOTE | 2018-01-13 13:03 | PN ---
S Progress Note Note: Vital Signs Temperature 98.6 F 01/13/18 06:52 Pulse Rate 108 H 01/13/18 06:52 Respiratory Rate 18 01/13/18 06:52 Blood Pressure 159/89 01/13/18 06:52 O2 Sat by Pulse Oximetry (%) chronic hiccups x 10 years, needs to follow up with GI while out patient aware needs to follow. Patient requested to d/c Colace reports no difficulty with BM Patient Aox3 no distress, table condition Ambulating in the unit Plan: colace d/c increase fluids patient to follow up with primary care provide upon discharge continue to monitor
[2018-01-13] MEDS: QUEtiapine FUMARATE 100 MG TABLET (FP) PO SCH ×2 (21:39→23:16)
[2018-01-13] MEDS: LIDOCAINE PATCH REMOVAL MC SCH (21:39)
[2018-01-13] MEDS: THIAMINE HCL 100 MG TABLET (FP) PO SCH (21:40)
[2018-01-14] MEDS: CYCLOBENZAPRINE HCL 10 MG TABLET (FP) PO SCH ×3 (06:12→21:27)
[2018-01-14] MEDS: PRENATAL VITAMINS W/ FOLIC ACID TABLET (FP) PO SCH (10:11)
[2018-01-14] MEDS: PANTOPRAZOLE 20 MG TABLET (FP) PO SCH ×2 (10:11→21:27)
[2018-01-14] MEDS: FERROUS GLUCONATE 324 MG TAB (FP) PO SCH (10:11)
[2018-01-14] MEDS: LIDOCAINE 5% TOPICAL PATCH TP SCH (10:12)
[2018-01-14] MEDS: LIDOCAINE PATCH REMOVAL MC SCH (21:27)
[2018-01-14] MEDS: THIAMINE HCL 100 MG TABLET (FP) PO SCH (21:27)
[2018-01-14] MEDS: QUEtiapine FUMARATE 100 MG TABLET (FP) PO SCH (21:27)
[2018-01-14] MEDS: IBUPROFEN 400 MG TABLET (FP) PO PRN (21:28)
[2018-01-15] MEDS: CYCLOBENZAPRINE HCL 10 MG TABLET (FP) PO SCH ×3 (06:41→22:31)
[2018-01-15] MEDS: PANTOPRAZOLE 20 MG TABLET (FP) PO SCH ×2 (10:48→22:31)
[2018-01-15] MEDS: PRENATAL VITAMINS W/ FOLIC ACID TABLET (FP) PO SCH (10:48)
[2018-01-15] MEDS: LIDOCAINE 5% TOPICAL PATCH TP SCH (10:49)
[2018-01-15] MEDS: FERROUS GLUCONATE 324 MG TAB (FP) PO SCH (10:50)
[2018-01-15] MEDS: QUEtiapine FUMARATE 100 MG TABLET (FP) PO SCH (22:32)
[2018-01-15] MEDS: THIAMINE HCL 100 MG TABLET (FP) PO SCH (22:32)
[2018-01-15] MEDS: LIDOCAINE PATCH REMOVAL MC SCH (22:33)
[2018-01-15] MEDS: IBUPROFEN 400 MG TABLET (FP) PO PRN (22:34)
[2018-01-15] MEDS: MELATONIN 5 MG TABLETS PO PRN (22:35)
[2018-01-16] MEDS: CYCLOBENZAPRINE HCL 10 MG TABLET (FP) PO SCH ×3 (06:16→22:04)
[2018-01-16] MEDS: IBUPROFEN 400 MG TABLET (FP) PO PRN ×2 (06:16→22:05)
[2018-01-16] MEDS: PANTOPRAZOLE 20 MG TABLET (FP) PO SCH ×2 (10:25→22:04)
[2018-01-16] MEDS: PRENATAL VITAMINS W/ FOLIC ACID TABLET (FP) PO SCH (10:25)
[2018-01-16] MEDS: FERROUS GLUCONATE 324 MG TAB (FP) PO SCH (10:26)
[2018-01-16] MEDS: LIDOCAINE 5% TOPICAL PATCH TP SCH (10:26)
[2018-01-16] MEDS: QUEtiapine FUMARATE 100 MG TABLET (FP) PO SCH (22:04)
[2018-01-16] MEDS: THIAMINE HCL 100 MG TABLET (FP) PO SCH (22:04)
[2018-01-16] MEDS: LIDOCAINE PATCH REMOVAL MC SCH (22:06)
[2018-01-17] MEDS: CYCLOBENZAPRINE HCL 10 MG TABLET (FP) PO SCH ×3 (06:24→21:54)
[2018-01-17] MEDS: IBUPROFEN 400 MG TABLET (FP) PO PRN (06:24)
[2018-01-17] MEDS: PANTOPRAZOLE 20 MG TABLET (FP) PO SCH ×2 (10:25→21:54)
[2018-01-17] MEDS: FERROUS GLUCONATE 324 MG TAB (FP) PO SCH (10:25)
[2018-01-17] MEDS: PRENATAL VITAMINS W/ FOLIC ACID TABLET (FP) PO SCH (10:25)
[2018-01-17] MEDS: LIDOCAINE 5% TOPICAL PATCH TP SCH (10:25)
[2018-01-17] MEDS: ACETAMINOPHEN 325 MG TABLET (FP) PO PRN (10:27)
[2018-01-17] MEDS: THIAMINE HCL 100 MG TABLET (FP) PO SCH (21:54)
[2018-01-17] MEDS: LIDOCAINE PATCH REMOVAL MC SCH (21:54)
[2018-01-17] MEDS: QUEtiapine FUMARATE 100 MG TABLET (FP) PO SCH (21:54)
[2018-01-18] MEDS: CYCLOBENZAPRINE HCL 10 MG TABLET (FP) PO SCH ×3 (06:43→21:59)
[2018-01-18] MEDS: PANTOPRAZOLE 20 MG TABLET (FP) PO SCH ×2 (10:35→21:59)
[2018-01-18] MEDS: FERROUS GLUCONATE 324 MG TAB (FP) PO SCH (10:42)
[2018-01-18] MEDS: LIDOCAINE 5% TOPICAL PATCH TP SCH (10:42)
[2018-01-18] MEDS: PRENATAL VITAMINS W/ FOLIC ACID TABLET (FP) PO SCH (10:42)
[2018-01-18] MEDS: ACETAMINOPHEN 325 MG TABLET (FP) PO PRN (14:34)
[2018-01-18] MEDS: MELATONIN 5 MG TABLETS PO PRN (21:59)
[2018-01-18] MEDS: QUEtiapine FUMARATE 100 MG TABLET (FP) PO SCH (21:59)
[2018-01-18] MEDS: THIAMINE HCL 100 MG TABLET (FP) PO SCH (21:59)
[2018-01-18] MEDS: LIDOCAINE PATCH REMOVAL MC SCH (22:34)
[2018-01-19] MEDS: CYCLOBENZAPRINE HCL 10 MG TABLET (FP) PO SCH ×3 (07:21→21:38)
[2018-01-19] MEDS: PRENATAL VITAMINS W/ FOLIC ACID TABLET (FP) PO SCH (10:42)
[2018-01-19] MEDS: PANTOPRAZOLE 20 MG TABLET (FP) PO SCH ×2 (10:42→21:38)
[2018-01-19] MEDS: FERROUS GLUCONATE 324 MG TAB (FP) PO SCH (10:42)
[2018-01-19] MEDS: LIDOCAINE 5% TOPICAL PATCH TP SCH (10:42)
[2018-01-19] MEDS: QUEtiapine FUMARATE 100 MG TABLET (FP) PO SCH (21:38)
[2018-01-19] MEDS: THIAMINE HCL 100 MG TABLET (FP) PO SCH (21:38)
[2018-01-19] MEDS: LIDOCAINE PATCH REMOVAL MC SCH (21:38)
[2018-01-20] MEDS: CYCLOBENZAPRINE HCL 10 MG TABLET (FP) PO SCH ×3 (06:11→21:48)
[2018-01-20] MEDS: LIDOCAINE 5% TOPICAL PATCH TP SCH (10:42)
[2018-01-20] MEDS: PRENATAL VITAMINS W/ FOLIC ACID TABLET (FP) PO SCH (10:42)
[2018-01-20] MEDS: PANTOPRAZOLE 20 MG TABLET (FP) PO SCH ×2 (10:42→21:48)
[2018-01-20] MEDS: FERROUS GLUCONATE 324 MG TAB (FP) PO SCH (10:42)
[2018-01-20] MEDS: THIAMINE HCL 100 MG TABLET (FP) PO SCH (21:48)
[2018-01-20] MEDS: QUEtiapine FUMARATE 100 MG TABLET (FP) PO SCH (21:48)
[2018-01-20] MEDS: MELATONIN 5 MG TABLETS PO PRN (21:48)
[2018-01-20] MEDS: LIDOCAINE PATCH REMOVAL MC SCH (21:49)
[2018-01-21] MEDS: CYCLOBENZAPRINE HCL 10 MG TABLET (FP) PO SCH ×3 (06:45→21:49)
[2018-01-21] MEDS: PANTOPRAZOLE 20 MG TABLET (FP) PO SCH ×2 (10:49→21:49)
[2018-01-21] MEDS: PRENATAL VITAMINS W/ FOLIC ACID TABLET (FP) PO SCH (10:49)
[2018-01-21] MEDS: FERROUS GLUCONATE 324 MG TAB (FP) PO SCH (10:49)
[2018-01-21] MEDS: LIDOCAINE 5% TOPICAL PATCH TP SCH (10:49)
[2018-01-21] MEDS: IBUPROFEN 400 MG TABLET (FP) PO PRN (10:50)
[2018-01-21] MEDS: QUEtiapine FUMARATE 100 MG TABLET (FP) PO SCH (21:49)
[2018-01-21] MEDS: THIAMINE HCL 100 MG TABLET (FP) PO SCH (21:50)
[2018-01-21] MEDS: LIDOCAINE PATCH REMOVAL MC SCH (21:50)
[2018-01-21] MEDS: MELATONIN 5 MG TABLETS PO PRN (21:50)
[2018-01-22] MEDS: CYCLOBENZAPRINE HCL 10 MG TABLET (FP) PO SCH ×3 (06:48→21:43)
[2018-01-22] MEDS: FERROUS GLUCONATE 324 MG TAB (FP) PO SCH (10:39)
[2018-01-22] MEDS: PANTOPRAZOLE 20 MG TABLET (FP) PO SCH ×2 (10:40→21:43)
[2018-01-22] MEDS: PRENATAL VITAMINS W/ FOLIC ACID TABLET (FP) PO SCH (10:40)
[2018-01-22] MEDS: LIDOCAINE 5% TOPICAL PATCH TP SCH (10:40)
[2018-01-22] MEDS: QUEtiapine FUMARATE 100 MG TABLET (FP) PO SCH (21:43)
[2018-01-22] MEDS: THIAMINE HCL 100 MG TABLET (FP) PO SCH (21:43)
[2018-01-22] MEDS: LIDOCAINE PATCH REMOVAL MC SCH (21:44)
[2018-01-23] MEDS: CYCLOBENZAPRINE HCL 10 MG TABLET (FP) PO SCH ×3 (06:50→21:43)
[2018-01-23] MEDS: PRENATAL VITAMINS W/ FOLIC ACID TABLET (FP) PO SCH (11:14)
[2018-01-23] MEDS: PANTOPRAZOLE 20 MG TABLET (FP) PO SCH ×2 (11:14→21:43)
[2018-01-23] MEDS: FERROUS GLUCONATE 324 MG TAB (FP) PO SCH (11:15)
[2018-01-23] MEDS: LIDOCAINE 5% TOPICAL PATCH TP SCH (11:17)
[2018-01-23] MEDS: THIAMINE HCL 100 MG TABLET (FP) PO SCH (21:43)
[2018-01-23] MEDS: QUEtiapine FUMARATE 100 MG TABLET (FP) PO SCH (21:43)
[2018-01-23] MEDS: LIDOCAINE PATCH REMOVAL MC SCH (21:44)
[2018-01-23] MEDS: MELATONIN 5 MG TABLETS PO PRN (21:44)
[2018-01-24] MEDS: CYCLOBENZAPRINE HCL 10 MG TABLET (FP) PO SCH ×3 (06:48→22:00)
[2018-01-24] MEDS ORDERED: PT OWN MED DRAWER 7, Y5N ONE (09:25)
[2018-01-24] MEDS: PRENATAL VITAMINS W/ FOLIC ACID TABLET (FP) PO SCH (10:44)
[2018-01-24] MEDS: LIDOCAINE 5% TOPICAL PATCH TP SCH (10:44)
[2018-01-24] MEDS: PANTOPRAZOLE 20 MG TABLET (FP) PO SCH ×2 (10:44→22:00)
[2018-01-24] MEDS: FERROUS GLUCONATE 324 MG TAB (FP) PO SCH (10:44)
[2018-01-24] MEDS: THIAMINE HCL 100 MG TABLET (FP) PO SCH (21:59)
[2018-01-24] MEDS: MELATONIN 5 MG TABLETS PO PRN (21:59)
[2018-01-24] MEDS: QUEtiapine FUMARATE 100 MG TABLET (FP) PO SCH (22:00)
[2018-01-24] MEDS: LIDOCAINE PATCH REMOVAL MC SCH (22:00)
[2018-01-25] MEDS: CYCLOBENZAPRINE HCL 10 MG TABLET (FP) PO SCH ×3 (06:22→21:55)
[2018-01-25] MEDS: PRENATAL VITAMINS W/ FOLIC ACID TABLET (FP) PO SCH (10:59)
[2018-01-25] MEDS: PANTOPRAZOLE 20 MG TABLET (FP) PO SCH ×2 (10:59→21:56)
[2018-01-25] MEDS: FERROUS GLUCONATE 324 MG TAB (FP) PO SCH (11:00)
[2018-01-25] MEDS: LIDOCAINE 5% TOPICAL PATCH TP SCH (11:00)
[2018-01-25] MEDS: QUEtiapine FUMARATE 100 MG TABLET (FP) PO SCH (21:55)
[2018-01-25] MEDS: THIAMINE HCL 100 MG TABLET (FP) PO SCH (21:56)
[2018-01-25] MEDS: ACETAMINOPHEN 325 MG TABLET (FP) PO PRN (21:56)
[2018-01-25] MEDS: LIDOCAINE PATCH REMOVAL MC SCH (21:57)
[2018-01-26] MEDS: CYCLOBENZAPRINE HCL 10 MG TABLET (FP) PO SCH ×3 (07:00→21:55)
[2018-01-26] MEDS: FERROUS GLUCONATE 324 MG TAB (FP) PO SCH (10:42)
[2018-01-26] MEDS: PRENATAL VITAMINS W/ FOLIC ACID TABLET (FP) PO SCH (10:42)
[2018-01-26] MEDS: PANTOPRAZOLE 20 MG TABLET (FP) PO SCH ×2 (10:42→21:55)
[2018-01-26] MEDS: LIDOCAINE 5% TOPICAL PATCH TP SCH (10:42)
[2018-01-26] MEDS: IBUPROFEN 400 MG TABLET (FP) PO PRN ×2 (10:43→21:57)
[2018-01-26] MEDS: QUEtiapine FUMARATE 100 MG TABLET (FP) PO SCH (21:55)
[2018-01-26] MEDS: THIAMINE HCL 100 MG TABLET (FP) PO SCH (21:55)
[2018-01-26] MEDS: LIDOCAINE PATCH REMOVAL MC SCH (21:59)
[2018-01-27] MEDS: CYCLOBENZAPRINE HCL 10 MG TABLET (FP) PO SCH ×3 (06:42→21:48)
[2018-01-27] MEDS: PANTOPRAZOLE 20 MG TABLET (FP) PO SCH ×2 (10:44→21:48)
[2018-01-27] MEDS: LIDOCAINE 5% TOPICAL PATCH TP SCH (10:44)
[2018-01-27] MEDS: PRENATAL VITAMINS W/ FOLIC ACID TABLET (FP) PO SCH (10:44)
[2018-01-27] MEDS: IBUPROFEN 400 MG TABLET (FP) PO PRN ×2 (10:46→21:49)
[2018-01-27] MEDS: FERROUS GLUCONATE 324 MG TAB (FP) PO SCH (10:46)
[2018-01-27] MEDS: THIAMINE HCL 100 MG TABLET (FP) PO SCH (21:48)
[2018-01-27] MEDS: QUEtiapine FUMARATE 100 MG TABLET (FP) PO SCH (21:48)
[2018-01-27] MEDS: LIDOCAINE PATCH REMOVAL MC SCH (21:50)
[2018-01-28] MEDS: CYCLOBENZAPRINE HCL 10 MG TABLET (FP) PO SCH ×3 (06:48→21:56)
[2018-01-28] MEDS: PANTOPRAZOLE 20 MG TABLET (FP) PO SCH ×2 (10:38→21:56)
[2018-01-28] MEDS: PRENATAL VITAMINS W/ FOLIC ACID TABLET (FP) PO SCH (10:39)
[2018-01-28] MEDS: LIDOCAINE 5% TOPICAL PATCH TP SCH (10:39)
[2018-01-28] MEDS: FERROUS GLUCONATE 324 MG TAB (FP) PO SCH (10:41)
[2018-01-28] MEDS: IBUPROFEN 400 MG TABLET (FP) PO PRN (10:41)
[2018-01-28] MEDS: THIAMINE HCL 100 MG TABLET (FP) PO SCH (21:56)
[2018-01-28] MEDS: QUEtiapine FUMARATE 100 MG TABLET (FP) PO SCH (21:56)
[2018-01-28] MEDS: LIDOCAINE PATCH REMOVAL MC SCH (21:57)
[2018-01-28] MEDS: MELATONIN 5 MG TABLETS PO PRN (21:57)
[2018-01-29] MEDS: CYCLOBENZAPRINE HCL 10 MG TABLET (FP) PO SCH ×3 (06:20→22:05)
[2018-01-29] MEDS: PRENATAL VITAMINS W/ FOLIC ACID TABLET (FP) PO SCH (10:44)
[2018-01-29] MEDS: PANTOPRAZOLE 20 MG TABLET (FP) PO SCH ×2 (10:44→22:06)
[2018-01-29] MEDS: FERROUS GLUCONATE 324 MG TAB (FP) PO SCH (10:45)
[2018-01-29] MEDS: LIDOCAINE 5% TOPICAL PATCH TP SCH (10:45)
[2018-01-29] MEDS: IBUPROFEN 400 MG TABLET (FP) PO PRN ×2 (10:47→22:06)
[2018-01-29] MEDS: QUEtiapine FUMARATE 100 MG TABLET (FP) PO SCH (22:05)
[2018-01-29] MEDS: LIDOCAINE PATCH REMOVAL MC SCH (22:06)
[2018-01-29] MEDS: THIAMINE HCL 100 MG TABLET (FP) PO SCH (22:06)
[2018-01-30] MEDS: CYCLOBENZAPRINE HCL 10 MG TABLET (FP) PO SCH ×3 (07:00→22:02)
[2018-01-30] MEDS: IBUPROFEN 400 MG TABLET (FP) PO PRN (07:01)
[2018-01-30] MEDS: FERROUS GLUCONATE 324 MG TAB (FP) PO SCH (10:36)
[2018-01-30] MEDS: LIDOCAINE 5% TOPICAL PATCH TP SCH (10:36)
[2018-01-30] MEDS: PANTOPRAZOLE 20 MG TABLET (FP) PO SCH ×2 (10:36→22:02)
[2018-01-30] MEDS: PRENATAL VITAMINS W/ FOLIC ACID TABLET (FP) PO SCH (10:36)
[2018-01-30] MEDS: ACETAMINOPHEN 325 MG TABLET (FP) PO PRN (10:37)
[2018-01-30] MEDS: LIDOCAINE PATCH REMOVAL MC SCH (22:02)
[2018-01-30] MEDS: THIAMINE HCL 100 MG TABLET (FP) PO SCH (22:02)
[2018-01-30] MEDS: QUEtiapine FUMARATE 100 MG TABLET (FP) PO SCH (22:02)
[2018-01-30] MEDS: MELATONIN 5 MG TABLETS PO PRN (22:03)
[2018-01-31] MEDS: ACETAMINOPHEN 325 MG TABLET (FP) PO PRN ×2 (06:08→10:54)
[2018-01-31] MEDS: CYCLOBENZAPRINE HCL 10 MG TABLET (FP) PO SCH ×3 (06:08→22:12)
[2018-01-31] MEDS: FERROUS GLUCONATE 324 MG TAB (FP) PO SCH (10:53)
[2018-01-31] MEDS: PANTOPRAZOLE 20 MG TABLET (FP) PO SCH ×2 (10:53→22:12)
[2018-01-31] MEDS: PRENATAL VITAMINS W/ FOLIC ACID TABLET (FP) PO SCH (10:53)
[2018-01-31] MEDS: LIDOCAINE 5% TOPICAL PATCH TP SCH (10:54)
--- NOTE | 2018-01-31 13:35 | PN ---
Psychiatric Progress Note Vital Signs: Vital Signs Period Temp Pulse Resp BP Sys/Dawson Pulse Ox Last 24 Hr 98.4 F 64 18-18 141/91 Date of Session: 01/31/18 Chief Complaint:: Discharge Note HPI: Patient addressing Alcohol, Cocaine and Cannabis Dependence comorbid with Nicotine Dependence ROS: HTN, GERD, Anemia Current Medications: Active Medications Generic Name Dose Route Start Last Admin Trade Name Freq PRN Reason Stop Dose Admin Acetaminophen 650 mg 01/04/18 16:38 01/31/18 10:54 Tylenol - PO 650 mg Q4H PRN Administration FEVER Al Hydroxide/Mg Hydroxide 30 ml 01/04/18 16:38 Mylanta Oral Suspension - PO Q6H PRN DYSPEPSIA Cyclobenzaprine HCl 10 mg 01/05/18 14:00 01/31/18 06:08 Flexeril - PO 10 mg TID MEGAN Administration Eucalyptus/Menthol/Phenol/Sorbitol 1 each 01/04/18 16:38 Cepastat Lozenge - MM Q4H PRN SORE THROAT Ferrous Gluconate 324 mg 01/07/18 10:00 01/31/18 10:53 Fergon - PO 324 mg DAILY MEGAN Administration Guaifenesin 10 ml 01/04/18 16:38 Robitussin Dm - PO Q6H PRN COUGH Hydroxyzine Pamoate 50 mg 01/04/18 16:38 01/05/18 10:28 Vistaril - PO 50 mg Q4H PRN Administration AGITATION Ibuprofen 400 mg 01/04/18 16:38 01/30/18 07:01 Motrin - PO 400 mg Q6H PRN Administration Pain Level 4-6 Lidocaine 1 patch 01/05/18 13:30 01/31/18 10:54 Lidoderm Patch - TP 1 patch DAILY MEGAN Administration Loperamide HCl 4 mg 01/04/18 16:38 Imodium - PO Q6H PRN DIARRHEA Magnesium Citrate 300 ml 01/04/18 16:38 Citroma - PO Q48H PRN CONSTIPATION Magnesium Hydroxide 30 ml 01/04/18 16:38 Milk Of Magnesia - PO DAILY PRN CONSTIPATION Melatonin 5 mg 01/04/18 22:00 01/30/18 22:03 Melatonin PO 5 mg HS PRN Administration INSOMNIA Miscellaneous 1 each 01/05/18 22:00 01/30/18 22:02 Lidoderm Patch Removal MC Not Given DAILY@2200 MEGAN Nicotine Polacrilex 2 mg 01/04/18 16:38 Nicorette Gum - BUC Q2H PRN NICOTINE REPLACEMENT RX Pantoprazole Sodium 20 mg 01/05/18 22:00 01/31/18 10:53 Protonix - PO 20 mg BID MEGAN Administration Multivit/Folic Acid/Iron 1 tab 01/05/18 10:00 01/31/18 10:53 Vitamins (Sjr) - PO 1 tab DAILY MEGAN Administration Pseudoephedrine/Triprolidine 1 combo 01/04/18 16:38 Actifed - PO TID PRN NASAL CONGESTION Quetiapine Fumarate 100 mg 01/04/18 22:00 01/30/18 22:02 Seroquel - PO 100 mg HS MEGAN Administration Thiamine HCl 100 mg 01/04/18 22:00 01/30/18 22:02 Vitamin B1 - PO 100 mg HS MEGAN Administration Current Side Effect: No Lab tests ordered: Yes Lab tests reviewed: Yes Provider note:: Patient will complete this program on 02/01/18. 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 Told development writer that from his participation in this program, he has learned that he is a better man clean and sober. He responded well to Seroquel 100 mg po HS. Script fpr 30 days supply of medication will be electronically transmitted to [facility] at [address] [place] [address]. He is stable for discharge on 02/01/18 Total face to face time:: 35 Mental Status Exam - Mental Status Exam Alert and Oriented to: Time, Place, Person Cognitive Function: Fair Patient Appearance: Well Groomed Mood: Hopeful, Euthymic Affect: Appropriate Patient Behavior: Cooperative Speech Pattern: Clear Voice Loudness: Normal Thought Process: Intact Thought Disorder: Not Present Hallucinations: Denies Suicidal Ideation: Denies Homicidal Ideation: Denies Insight/Judgement: Fair Sleep: Fair Appetite: Good Muscle strength/Tone: Normal Gait/Station: Normal Psychiatric Treatment Plan - Problem List (1) Alcohol dependence Current Visit: Yes (2) Cocaine dependence Current Visit: Yes (3) Cannabis dependence Current Visit: Yes (4) Nicotine dependence Current Visit: Yes (5) Essential hypertension Current Visit: Yes (6) GERD (gastroesophageal reflux disease) Current Visit: No (7) History of anemia Current Visit: No Initial treatment plan: Patient will be discharged tomorrow and referred to [facility] for termite control representative residential treatment
[2018-01-31] MEDS: THIAMINE HCL 100 MG TABLET (FP) PO SCH (22:12)
[2018-01-31] MEDS: QUEtiapine FUMARATE 100 MG TABLET (FP) PO SCH (22:12)
[2018-01-31] MEDS: LIDOCAINE PATCH REMOVAL MC SCH (22:13)
[2018-01-31] MEDS: MELATONIN 5 MG TABLETS PO PRN (22:13)
[2018-02-01 06:50] VITALS: BP 145/95; PULSE 80; TEMP 98.5
[2018-02-01] MEDS: IBUPROFEN 400 MG TABLET (FP) PO PRN (06:55)
[2018-02-01] MEDS: CYCLOBENZAPRINE HCL 10 MG TABLET (FP) PO SCH (07:39)
[2018-02-01] MEDS: PRENATAL VITAMINS W/ FOLIC ACID TABLET (FP) PO SCH (11:50)
[2018-02-01] MEDS: LIDOCAINE 5% TOPICAL PATCH TP SCH (11:50)
[2018-02-01] MEDS: FERROUS GLUCONATE 324 MG TAB (FP) PO SCH (11:51)
== END 2018-02-01 12:30 | disposition home or self-care (01) | DRG 772 ==
LOC: YASAS 13:10 → Y5N 13:11
PROVIDERS: ADMIT Psychiatry & Neurology Psychiatry; ATTEND Psychiatry & Neurology Psychiatry
PROC: HZ42ZZZ Group Counseling for Substance Abuse Treatment, Cognitive-Behavioral (ICD-10-PCS; principal; 2018-01-04)
DX: F10.20 Alcohol dependence, uncomplicated (principal); F14.20 Cocaine dependence, uncomplicated; F12.20 Cannabis dependence, uncomplicated; F17.210 Nicotine dependence, cigarettes, uncomplicated; F19.24 Other psychoactive substance dependence with psychoactive substance-induced mood disorder; I10 Essential (primary) hypertension; K21.9 Gastro-esophageal reflux disease without esophagitis; K40.20 Bilateral inguinal hernia, without obstruction or gangrene, not specified as recurrent; M54.5 Low back pain; Z86.2 Personal history of diseases of the blood and blood-forming organs and certain disorders involving the immune mechanism; R06.6 Hiccough; R89.9 Unspecified abnormal finding in specimens from other organs, systems and tissues; Z59.0 Homelessness
CPT/HCPCS: 36415; 85025

== ENCOUNTER 2018-09-27 13:15 | Inpatient (IN) | payer OTHER ==
[2018-09-27 17:11] VITALS: BMI 24.2
--- NOTE | 2018-09-27 17:20 | HP ---
CIWA Score Nausea/Vomitin Muscle Tremors: 3 Anxiety: 2 Agitation: 2 Paroxysmal Sweats: 2 Orientation: 0-Oriented Tacttile Disturbances: 0-None Auditory Disturbances: 0-None Visual Disturbances: 0-None Headache: 1-Very Mild CIWA-Ar Total Score: 12 - Admission Criteria OASAS Guidelines: Admission for Medically Managed Detox: Requires at least one of the followin. CIWA greater than 12 2. Seizures within the past 24 hours 3. Delirium tremens within the past 24 hours 4. Hallucinations within the past 24 hours 5. Acute intervention needed for co occurring medical disorder 6. Acute intervention needed for co occurring psychiatric disorder 7. Severe withdrawal that cannot be handled at a lower level of care (continued vomiting, continued diarrhea, abnormal vital signs) requiring intravenous medication and/or fluids 8. Patient presents the following: CIWA greater than 12 Admission Criteria Met: Admission criteria met Admission ROS [facility] Chief Complaint: alcohol detox 52 yo with alcohol use disorder, last in detox here fall. Says he went to the [facility] for treatment of hiccups last night, and was given Maalox and some pills. Says he was referred here from the ER. Says he had his last alcohol drink yesterday. Does not work- says he is disabled. Says he is homeless. Lives in [facility]- does not know details. Pt does not know his medical problems, does not know name of medications. PCP- pt does not know. From previous admission 2018: "Patient has medical history of GERD, chronic back pain, anemia, brain aneurysm, depression and anxiety". Pt says he has difficulty walking. Pt seen by counselor in [facility] alcohol- 1 pint/day of vodka, no h/o seizures/DT's MJ- uses about 3 blunts/day DUR/ISTOP- no meds SULLY- 0, Utox: THC and met- denies drug Allergies/Adverse Reactions: Allergies Allergy/AdvReac Type Severity Reaction Status Date / Time No Known Allergies Allergy Verified 12/30/17 22:25 Exam Limitations: No Limitations - Ebola screening Have you traveled outside of the country in the last 21 days: No Have you had contact with anyone from an Ebola affected area: No Patient History - Patient Medical History Hx Anemia: Yes (Not on medication) Hx Asthma: No Hx Chronic Obstructive Pulmonary Disease (COPD): No Hx Cancer: No Hx Cardiac Disorders: No Hx Congestive Heart Failure: No Hx Hypertension: No Hx Hypercholesterolemia: No Hx Pacemaker: No HX Cerebrovascular Accident: No Hx Seizures: No Hx Dementia: No Hx Diabetes: No Hx Gastrointestinal Disorders: Yes (Not on medication) Hx Liver Disease: No Hx Genitourinary Disorders: No Hx Sexually Transmitted Disorders: No Hx Renal Disease (ESRD): No Hx Thyroid Disease: No Hx Human Immunodeficiency Virus (HIV): No (NEGATIVE 2018) Hx Hepatitis C: No Hx Depression: Yes Hx Suicide Attempt: No Hx Schizophrenia: No - Patient Surgical History Past Surgical History: Yes Hx Neurologic Surgery: No Hx Cataract Extraction: No Hx Cardiac Surgery: No Hx Lung Surgery: No Hx Breast Surgery: No Hx Breast Biopsy: No Hx Abdominal Surgery: No Hx Appendectomy: No Hx Cholecystectomy: No Hx Genitourinary Surgery: No Hx Section: No Hx Orthopedic Surgery: Yes (ARTHROSCOPIC SX OF left KNEE DUE TO SPORT INJURY A TEEN) Other Surgical History: MEDIALSTERNOSCOPY DUE TO SEVERE ?GERD FEW YEARS AGO Anesthesia Reaction: No - PPD History Previous Implant?: Yes Documented Results: Negative w/proof Date: 01/02/18 - Smoking Cessation Smoking history: Current every day smoker Have you smoked in the past 12 months: Yes Aproximately how many cigarettes per day: 10 Cigars Per Day: 0 Hx Chewing Tobacco Use: No Initiated information on smoking cessation: Yes 'Breaking Loose' booklet given: 09/27/18 Family Disease History - Family Disease History Family Disease History: Heart Disease: Mother (EMPHESEMA/ASTHMA-), Respiratory: Mother, Other: Sister Admission Physical Exam S - Vital Signs Vital Signs: Vital Signs - 24 hr 09/27/18 17:07 Temperature 96.7 F L Pulse Rate 91 H Respiratory 18 Rate Blood Pressure 164/91 - Physical General Appearance: Yes: Disheveled, Mild Distress, Tremorous HEENTM: Yes: Hearing grossly Normal, Pharynx Normal, Excessive Drooling Respiratory: Yes: Lungs Clear Neck: Yes: Within Normal Limits Cardiology: Yes: Within Normal Limits, Regular Rhythm, Regular Rate Abdominal: Yes: Within Normal Limits, Normal Bowel Sounds Genitourinary: Yes: Within Normal Limits Back: Yes: Within Normal Limits Musculoskeletal: Yes: Other (unsteady gait,) Extremities: Yes: Other Neurological: Yes: Depressed Affect (non cooperative to exam, pt is alert to year, name and place ([place]- does not know name of hospital), flat affect, unstable gait) - Diagnostic (1) Alcohol dependence Current Visit: No Status: Chronic Breathalyzer - Breathalyzer Breathalyzer: 0 Urine Drug Screen - Test Device Lot number: [id number] Expiration date: 06/10/20 - Control Is test valid?: Yes - Results Drug screen NEGATIVE: No Urine drug screen results: THC-Marijuana, MET-Methamphetamine Inpatient Rehab Admission - Rehab Decision to Admit Inpatient rehab admission?: No
[2018-09-27] MEDS ORDERED: chlordiazePOXIDE HCL 10 MG CAPSULE PO PRN (17:25)
[2018-09-27] MEDS ORDERED: ACETAMINOPHEN 325 MG TABLET (FP) PO PRN ×2 (17:25)
[2018-09-27] MEDS ORDERED: MAGNESIUM HYDROX 2400MG/30ML ORAL SUSPENSION 30 ML CUP PO PRN (17:25)
[2018-09-27] MEDS ORDERED: IBUPROFEN 400 MG TABLET (FP) PO PRN (17:25)
[2018-09-27] MEDS ORDERED: MAG HYDROX/AL HYDROX/SIMETH 30 ML UNIT-DOSE CUP PO PRN (17:25)
[2018-09-27] MEDS ORDERED: MAGNESIUM CITRATE 300 ML BOTTLE PO PRN (17:25)
[2018-09-27] MEDS ORDERED: MENTHOL/PHENOL 1 EACH UD MM PRN (17:25)
[2018-09-27] MEDS ORDERED: BISMUTH SUBSALICYLATE 524 MG/30 ML UD PO PRN (17:25)
[2018-09-27] MEDS ORDERED: chlordiazePOXIDE 5 MG CAPSULE PO PRN (18:15)
[2018-09-27] MEDS ORDERED: chlordiazePOXIDE 5 MG CAPSULE PO ONE (18:30)
[2018-09-27] MEDS: hydrOXYzine PAMOATE 25 MG CAPSULE (FP) PO PRN (18:45)
[2018-09-27] MEDS ORDERED: cloNIDine HCL 0.1 MG TABLET PO ONE (18:49)
[2018-09-27] MEDS: chlordiazePOXIDE 5 MG CAPSULE PO SCH (22:28)
[2018-09-27] MEDS: METHOCARBAMOL 500 MG TABLET PO PRN (22:28)
[2018-09-27] MEDS: MELATONIN 5 MG TABLETS PO PRN (22:28)
[2018-09-27] MEDS: THIAMINE HCL 100 MG TABLET (FP) PO SCH (22:29)
[2018-09-27 23:10] LABS: HYALINE CASTS 1 /lpf (0-8); URINE APPEARANCE CLEAR; URINE BACTERIA 0.7 /hpf (NEGATIVE); URINE BILIRUBIN NEGATIVE (NEGATIVE); URINE COLOR YELLOW; URINE GLUCOSE (UA) NEGATIVE (NEGATIVE); URINE KETONE TRACE (NEGATIVE); URINE LEUK ESTERASE NEGATIVE (NEGATIVE); URINE NITRITE NEGATIVE (NEGATIVE); URINE PROTEIN 1+ (NEGATIVE); URINE RBC 3 /hpf (0-4); URINE WBC 1 /hpf (0-5)
[2018-09-28] MEDS: chlordiazePOXIDE 5 MG CAPSULE PO SCH ×2 (06:27→14:04)
[2018-09-28 10:03] LABS: ALBUMIN 2.9 g/dl (3.4-5.0); BILIRUBIN,TOTAL 0.2 mg/dL (0.2-1); CALCIUM 8.1 mg/dL (8.5-10.1); CREATININE 0.9 mg/dL (0.55-1.3); POTASSIUM 4.1 mmol/L (3.5-5.1); TOT PROT 5.6 g/dl (6.4-8.2)
[2018-09-28 10:10] LABS: HEMATOCRIT 27.9 % (35.4-49); HEMOGLOBIN 8.7 GM/dL (11.7-16.9); MCH 25.3 pg (25.7-33.7); MCHC 31.3 g/dl (32.0-35.9); MEAN CELL VOLUME 80.9 fl (80-96); MEAN PLT VOLUME 7.4 fl (7.5-11.1); PLATELET COUNT 459 K/MM3 (134-434); RBC 3.45 M/mm3 (4.00-5.60); RDW 22.5 % (11.9-15.9); WHITE BLOOD COUNT 7.9 K/mm3 (4.0-10.0)
--- NOTE | 2018-09-28 10:27 | PN ---
[facility] CIWA - CIWA Score Nausea/Vomitin-Mild Nausea/No Vomiting Muscle Tremors: 3 Anxiety: 2 Agitation: 2 Paroxysmal Sweats: 1-Minimal Palms Moist Orientation: 1-Uncertain about Date Tacttile Disturbances: 0-None Auditory Disturbances: 0-None Visual Disturbances: 0-None Headache: 1-Very Mild CIWA-Ar Total Score: 11 S Progress Note (SOAP) Subjective: long history of hypertension treated with lisinopril order lisinopril adds clonidin 0.1 mg po q6h prn for hypertension Objective: 09/28/18 10:26 Vital Signs Temperature 97.2 F L 09/28/18 09:17 Pulse Rate 80 09/28/18 09:17 Respiratory Rate 18 09/28/18 09:17 Blood Pressure 156/108 H 09/28/18 09:17 O2 Sat by Pulse Oximetry (%) Laboratory Last Values WBC 7.9 K/mm3 (4.0-10.0) 09/28/18 07:00 RBC 3.45 M/mm3 (4.00-5.60) L 09/28/18 07:00 Hgb 8.7 GM/dL (11.7-16.9) L 09/28/18 07:00 Hct 27.9 % (35.4-49) L 09/28/18 07:00 MCV 80.9 fl (80-96) 09/28/18 07:00 MCH 25.3 pg (25.7-33.7) L D 09/28/18 07:00 MCHC 31.3 g/dl (32.0-35.9) L 09/28/18 07:00 RDW 22.5 % (11.9-15.9) H 09/28/18 07:00 Plt Count 459 K/MM3 (134-434) H 09/28/18 07:00 MPV 7.4 fl (7.5-11.1) L D 09/28/18 07:00 Sodium 144 mmol/L (136-145) 09/28/18 07:00 Potassium 4.1 mmol/L (3.5-5.1) 09/28/18 07:00 Chloride 109 mmol/L (98-107) H 09/28/18 07:00 Carbon Dioxide 29 mmol/L (21-32) 09/28/18 07:00 Anion Gap 7 MMOL/L (8-16) L 09/28/18 07:00 BUN 16 mg/dL (7-18) 09/28/18 07:00 Creatinine 0.9 mg/dL (0.55-1.3) 09/28/18 07:00 Est GFR (CKD-EPI)AfAm 115.02 09/28/18 07:00 Est GFR (CKD-EPI)NonAf 99.24 09/28/18 07:00 Random Glucose 95 mg/dL (74-106) 09/28/18 07:00 Calcium 8.1 mg/dL (8.5-10.1) L 09/28/18 07:00 Total Bilirubin 0.2 mg/dL (0.2-1) 09/28/18 07:00 AST 13 U/L (15-37) L 09/28/18 07:00 ALT 19 U/L (13-61) 09/28/18 07:00 Alkaline Phosphatase 58 U/L (45-117) 09/28/18 07:00 Total Protein 5.6 g/dl (6.4-8.2) L 09/28/18 07:00 Albumin 2.9 g/dl (3.4-5.0) L 09/28/18 07:00 Urine Color Yellow 09/27/18 23:00 Urine Appearance Clear 09/27/18 23:00 Urine pH 6.0 (5.0-8.0) 09/27/18 23:00 Ur Specific [place] 1.023 (1.010-1.035) 09/27/18 23:00 Urine Protein 1+ (NEGATIVE) H 09/27/18 23:00 Urine Glucose (UA) Negative (NEGATIVE) 09/27/18 23:00 Urine Ketones Trace (NEGATIVE) H 09/27/18 23:00 Urine Blood Negative (NEGATIVE) 09/27/18 23:00 Urine Nitrite Negative (NEGATIVE) 09/27/18 23:00 Urine Bilirubin Negative (NEGATIVE) 09/27/18 23:00 Urine Urobilinogen 1.0 mg/dL (0.2-1.0) 09/27/18 23:00 Ur Leukocyte Esterase Negative (NEGATIVE) 09/27/18 23:00 Urine WBC (Auto) 1 /hpf (0-5) 09/27/18 23:00 Urine RBC (Auto) 3 /hpf (0-4) 09/27/18 23:00 Urine Casts (Auto) 1 /lpf (0-8) 09/27/18 23:00 U Epithel Cells (Auto) 1.0 /HPF (0-5/HPF) 09/27/18 23:00 Urine Bacteria (Auto) 0.7 /hpf (NEGATIVE) 09/27/18 23:00 lab noted Assessment: 09/28/18 10:33 alcohol withdrawal sx hypertension Plan: continue detox
[2018-09-28] MEDS ORDERED: cloNIDine HCL 0.1 MG TABLET PO PRN ×2 (10:31→10:32)
[2018-09-28] MEDS: PRENATAL VITAMINS W/ FOLIC ACID TABLET (FP) PO SCH (11:19)
[2018-09-28] MEDS: LISINOPRIL 10 MG TABLET (FP) PO SCH (11:24)
[2018-09-28] MEDS: ASPIRIN 81 MG CHEWABLE TABLETS PO SCH (11:24)
--- NOTE | 2018-09-28 12:14 | EKG ---
Test Reason : Blood Pressure : / mmHG Vent. Rate : 075 BPM Atrial Rate : 075 BPM P-R Int : 122 ms QRS Dur : 092 ms QT Int : 388 ms P-R-T Axes : 037 020 076 degrees QTc Int : 433 ms NORMAL SINUS RHYTHM LEFT VENTRICULAR HYPERTROPHY WITH REPOLARIZATION ABNORMALITY ABNORMAL ECG WHEN COMPARED WITH ECG OF 31-DEC-2017 01:41, NO SIGNIFICANT CHANGE WAS FOUND Confirmed by MD Binu, Matthew ([id number]) on 09/28/2018 12:14:33 PM Referred By: Confirmed By:Matthew Schmid MD
--- NOTE | 2018-09-28 14:45 | PN ---
[facility] Progress Note Note: received nurse supervisor mold construction reported that the patient fell at [facility] yesterday assessed and evaluated by MD patient denies pain today feeling better today ambulate from bed to bathroom steady gait no bruises noted witnessed fall no head injury protocol followed that fall #2 protocol executed
[2018-09-28] MEDS: hydrOXYzine PAMOATE 25 MG CAPSULE (FP) PO PRN (18:13)
--- NOTE | 2018-09-28 18:28 | CONSULT ---
[facility] Psychiatric Consult - Data Date of interview: 09/28/18 Admission source: [facility] Identifying data: Patient is approached for psychiatric interview. Mr Robin is angry, easily irritable and overtly hostile. DECLINES conversation with psychiatrist. Staff made aware.
[2018-09-28] MEDS: chlordiazePOXIDE HCL 10 MG CAPSULE PO SCH (20:46)
[2018-09-28] MEDS: METHOCARBAMOL 500 MG TABLET PO PRN (20:46)
[2018-09-28] MEDS: MELATONIN 5 MG TABLETS PO PRN (20:46)
[2018-09-28] MEDS: THIAMINE HCL 100 MG TABLET (FP) PO SCH (22:40)
[2018-09-29] MEDS: chlordiazePOXIDE HCL 10 MG CAPSULE PO SCH (07:17)
[2018-09-29 08:27] VITALS: TEMP 97.7
[2018-09-29 09:17] VITALS: BP 138/85; PULSE 79
[2018-09-29] MEDS: LISINOPRIL 10 MG TABLET (FP) PO SCH (09:55)
[2018-09-29] MEDS: PRENATAL VITAMINS W/ FOLIC ACID TABLET (FP) PO SCH (09:55)
[2018-09-29] MEDS: ASPIRIN 81 MG CHEWABLE TABLETS PO SCH (09:55)
--- NOTE | 2018-09-29 11:28 | PN ---
S CIWA - CIWA Score Nausea/Vomitin-No Nausea/No Vomiting Muscle Tremors: 2 Anxiety: 2 Agitation: 2 Paroxysmal Sweats: No Perspiration Orientation: 0-Oriented Tacttile Disturbances: 0-None Auditory Disturbances: 0-None Visual Disturbances: 0-None Headache: 0-None Present CIWA-Ar Total Score: 6 [facility] Progress Note (SOAP) Subjective: feeling better today well rested social with peers in day room discuss aftercare with staff Objective: 09/29/18 11:34 Vital Signs Temperature 97.7 F 09/29/18 09:16 Pulse Rate 79 09/29/18 09:16 Respiratory Rate 18 09/29/18 09:16 Blood Pressure 138/85 09/29/18 09:16 O2 Sat by Pulse Oximetry (%) Laboratory Last Values WBC 7.9 K/mm3 (4.0-10.0) 09/28/18 07:00 RBC 3.45 M/mm3 (4.00-5.60) L 09/28/18 07:00 Hgb 8.7 GM/dL (11.7-16.9) L 09/28/18 07:00 Hct 27.9 % (35.4-49) L 09/28/18 07:00 MCV 80.9 fl (80-96) 09/28/18 07:00 MCH 25.3 pg (25.7-33.7) L D 09/28/18 07:00 MCHC 31.3 g/dl (32.0-35.9) L 09/28/18 07:00 RDW 22.5 % (11.9-15.9) H 09/28/18 07:00 Plt Count 459 K/MM3 (134-434) H 09/28/18 07:00 MPV 7.4 fl (7.5-11.1) L D 09/28/18 07:00 Sodium 144 mmol/L (136-145) 09/28/18 07:00 Potassium 4.1 mmol/L (3.5-5.1) 09/28/18 07:00 Chloride 109 mmol/L (98-107) H 09/28/18 07:00 Carbon Dioxide 29 mmol/L (21-32) 09/28/18 07:00 Anion Gap 7 MMOL/L (8-16) L 09/28/18 07:00 BUN 16 mg/dL (7-18) 09/28/18 07:00 Creatinine 0.9 mg/dL (0.55-1.3) 09/28/18 07:00 Est GFR (CKD-EPI)AfAm 115.02 09/28/18 07:00 Est GFR (CKD-EPI)NonAf 99.24 09/28/18 07:00 Random Glucose 95 mg/dL (74-106) 09/28/18 07:00 Calcium 8.1 mg/dL (8.5-10.1) L 09/28/18 07:00 Total Bilirubin 0.2 mg/dL (0.2-1) 09/28/18 07:00 AST 13 U/L (15-37) L 09/28/18 07:00 ALT 19 U/L (13-61) 09/28/18 07:00 Alkaline Phosphatase 58 U/L (45-117) 09/28/18 07:00 Total Protein 5.6 g/dl (6.4-8.2) L 09/28/18 07:00 Albumin 2.9 g/dl (3.4-5.0) L 09/28/18 07:00 Urine Color Yellow 09/27/18 23:00 Urine Appearance Clear 09/27/18 23:00 Urine pH 6.0 (5.0-8.0) 09/27/18 23:00 Ur Specific [place] 1.023 (1.010-1.035) 09/27/18 23:00 Urine Protein 1+ (NEGATIVE) H 09/27/18 23:00 Urine Glucose (UA) Negative (NEGATIVE) 09/27/18 23:00 Urine Ketones Trace (NEGATIVE) H 09/27/18 23:00 Urine Blood Negative (NEGATIVE) 09/27/18 23:00 Urine Nitrite Negative (NEGATIVE) 09/27/18 23:00 Urine Bilirubin Negative (NEGATIVE) 09/27/18 23:00 Urine Urobilinogen 1.0 mg/dL (0.2-1.0) 09/27/18 23:00 Ur Leukocyte Esterase Negative (NEGATIVE) 09/27/18 23:00 Urine WBC (Auto) 1 /hpf (0-5) 09/27/18 23:00 Urine RBC (Auto) 3 /hpf (0-4) 09/27/18 23:00 Urine Casts (Auto) 1 /lpf (0-8) 09/27/18 23:00 U Epithel Cells (Auto) 1.0 /HPF (0-5/HPF) 09/27/18 23:00 Urine Bacteria (Auto) 0.7 /hpf (NEGATIVE) 09/27/18 23:00 RPR Titer Nonreactive (NONREACTIVE) 09/28/18 07:00 lab noted Assessment: 09/29/18 11:35 withdrawal sx Plan: continue detox
--- NOTE | 2018-09-29 13:00 | DS ---
[facility] Detox Discharge Summary Admission Date: 09/27/18 Discharge Date: 09/29/18 - History Present History: Alcohol Dependence Additional Comments: 52 years old male admitted on 09/27/18 for alcohol withdrawal stabilization after lunch and napping feeling better preferring to begin alcoholl rehab today alert no acute distress denies suicidal ideation aftercare community self help support group Pertinent Past History: bring in medication list and lab report to follow up appointment - Physical Exam Results Vital Signs: Vital Signs Temperature 97.7 F 09/29/18 09:16 Pulse Rate 79 09/29/18 09:16 Respiratory Rate 18 09/29/18 09:16 Blood Pressure 138/85 09/29/18 09:16 O2 Sat by Pulse Oximetry (%) Pertinent Admission Physical Exam Findings: alcohol withdrawal sx Laboratory Last Values WBC 7.9 K/mm3 (4.0-10.0) 09/28/18 07:00 RBC 3.45 M/mm3 (4.00-5.60) L 09/28/18 07:00 Hgb 8.7 GM/dL (11.7-16.9) L 09/28/18 07:00 Hct 27.9 % (35.4-49) L 09/28/18 07:00 MCV 80.9 fl (80-96) 09/28/18 07:00 MCH 25.3 pg (25.7-33.7) L D 09/28/18 07:00 MCHC 31.3 g/dl (32.0-35.9) L 09/28/18 07:00 RDW 22.5 % (11.9-15.9) H 09/28/18 07:00 Plt Count 459 K/MM3 (134-434) H 09/28/18 07:00 MPV 7.4 fl (7.5-11.1) L D 09/28/18 07:00 Sodium 144 mmol/L (136-145) 09/28/18 07:00 Potassium 4.1 mmol/L (3.5-5.1) 09/28/18 07:00 Chloride 109 mmol/L (98-107) H 09/28/18 07:00 Carbon Dioxide 29 mmol/L (21-32) 09/28/18 07:00 Anion Gap 7 MMOL/L (8-16) L 09/28/18 07:00 BUN 16 mg/dL (7-18) 09/28/18 07:00 Creatinine 0.9 mg/dL (0.55-1.3) 09/28/18 07:00 Est GFR (CKD-EPI)AfAm 115.02 09/28/18 07:00 Est GFR (CKD-EPI)NonAf 99.24 09/28/18 07:00 Random Glucose 95 mg/dL (74-106) 09/28/18 07:00 Calcium 8.1 mg/dL (8.5-10.1) L 09/28/18 07:00 Total Bilirubin 0.2 mg/dL (0.2-1) 09/28/18 07:00 AST 13 U/L (15-37) L 09/28/18 07:00 ALT 19 U/L (13-61) 09/28/18 07:00 Alkaline Phosphatase 58 U/L (45-117) 09/28/18 07:00 Total Protein 5.6 g/dl (6.4-8.2) L 09/28/18 07:00 Albumin 2.9 g/dl (3.4-5.0) L 09/28/18 07:00 Urine Color Yellow 09/27/18 23:00 Urine Appearance Clear 09/27/18 23:00 Urine pH 6.0 (5.0-8.0) 09/27/18 23:00 Ur Specific [place] 1.023 (1.010-1.035) 09/27/18 23:00 Urine Protein 1+ (NEGATIVE) H 09/27/18 23:00 Urine Glucose (UA) Negative (NEGATIVE) 09/27/18 23:00 Urine Ketones Trace (NEGATIVE) H 09/27/18 23:00 Urine Blood Negative (NEGATIVE) 09/27/18 23:00 Urine Nitrite Negative (NEGATIVE) 09/27/18 23:00 Urine Bilirubin Negative (NEGATIVE) 09/27/18 23:00 Urine Urobilinogen 1.0 mg/dL (0.2-1.0) 09/27/18 23:00 Ur Leukocyte Esterase Negative (NEGATIVE) 09/27/18 23:00 Urine WBC (Auto) 1 /hpf (0-5) 09/27/18 23:00 Urine RBC (Auto) 3 /hpf (0-4) 09/27/18 23:00 Urine Casts (Auto) 1 /lpf (0-8) 09/27/18 23:00 U Epithel Cells (Auto) 1.0 /HPF (0-5/HPF) 09/27/18 23:00 Urine Bacteria (Auto) 0.7 /hpf (NEGATIVE) 09/27/18 23:00 RPR Titer Nonreactive (NONREACTIVE) 09/28/18 07:00 lab noted - Treatment Hospital Course: Detox Protocol Followed, Detoxed Safely, Responded well, Discharged Condition Good, Rehab Referral Accepted - Medication Discharge Medications: Ambulatory Orders Quetiapine Fumarate [Seroquel] 100 mg PO HS #30 tablet 02/01/18 - Diagnosis (1) Alcohol dependence with uncomplicated withdrawal Current Visit: Yes Status: Acute (2) GERD (gastroesophageal reflux disease) Current Visit: Yes Status: Chronic Qualifiers: Esophagitis presence: without esophagitis Qualified Code(s): K21.9 - Gastro -esophageal reflux disease without esophagitis (3) Essential hypertension Current Visit: Yes Status: Chronic (4) Substance induced mood disorder Current Visit: Yes Status: Suspected - AMA Did Patient Leave Against Medical Advice: No
[2018-09-29] MEDS ORDERED: chlordiazePOXIDE 5 MG CAPSULE PO SCH (21:00)
[2018-09-29] MEDS ORDERED: chlordiazePOXIDE HCL 10 MG CAPSULE PO PRN (21:00)
== END 2018-09-29 12:05 | disposition home or self-care (01) | DRG 775 ==
LOC: YASAS 13:15 → Y3N 18:10
PROVIDERS: ADMIT Surgery; ATTEND Surgery
PROC: HZ2ZZZZ Detoxification Services for Substance Abuse Treatment (ICD-10-PCS; principal; 2018-09-27)
DX: F10.230 Alcohol dependence with withdrawal, uncomplicated (principal); F17.210 Nicotine dependence, cigarettes, uncomplicated; F19.24 Other psychoactive substance dependence with psychoactive substance-induced mood disorder; F32.9 Major depressive disorder, single episode, unspecified; I10 Essential (primary) hypertension; K21.9 Gastro-esophageal reflux disease without esophagitis
CPT/HCPCS: 36415; 80053; 81003; 85027; 86593; 93005; 93010; J0735

== ENCOUNTER 2018-10-18 10:59 | Inpatient (IN) | payer OTHER ==
[2018-10-18 11:20] VITALS: BMI 23.7
--- NOTE | 2018-10-18 12:23 | HP ---
CIWA Score Nausea/Vomitin-Mild Nausea/No Vomiting Muscle Tremors: 4-Moderate,w/Arms Extend Anxiety: 3 Agitation: 3 Paroxysmal Sweats: 3 Orientation: 0-Oriented Tacttile Disturbances: 0-None Auditory Disturbances: 0-None Visual Disturbances: 0-None Headache: 0-None Present CIWA-Ar Total Score: 14 - Admission Criteria OASAS Guidelines: Admission for Medically Managed Detox: Requires at least one of the followin. CIWA greater than 12 2. Seizures within the past 24 hours 3. Delirium tremens within the past 24 hours 4. Hallucinations within the past 24 hours 5. Acute intervention needed for co occurring medical disorder 6. Acute intervention needed for co occurring psychiatric disorder 7. Severe withdrawal that cannot be handled at a lower level of care (continued vomiting, continued diarrhea, abnormal vital signs) requiring intravenous medication and/or fluids 8. Admission ROS [facility] - HPI Chief Complaint: I'm messed up and need help. Allergies/Adverse Reactions: Allergies Allergy/AdvReac Type Severity Reaction Status Date / Time No Known Allergies Allergy Verified 10/18/18 11:07 History of Present Illness: pt is a 52yrold male with a history of alcohol and cannabis dependence seeking detox for treatment. pt states he was at [facility] overnight d/t his intoxication and is here now for detox treatment. Exam Limitations: No Limitations - Ebola screening Have you traveled outside of the country in the last 21 days: No (N) Have you had contact with anyone from an Ebola affected area: No Have you been sick,other than usual withdrawal symptoms: No Do you have a fever: No - Review of Systems Constitutional: Chills, Diaphoresis, Night Sweats, Changes in sleep EENT: reports: No Symptoms Reported Respiratory: reports: No Symptoms reported Cardiac: reports: Lightheadedness GI: reports: Poor Fluid Intake : reports: No Symptoms Reported Musculoskeletal: reports: No Symptoms Reported Integumentary: reports: Flushing, Sweating Neuro: reports: Headache, Tingling, Tremors Endocrine: reports: Excessive Sweating, Flushing, Intolerance to Cold, Intolerance to Heat Hematology: reports: Anemia Psychiatric: reports: Judgement Intact, Mood/Affect Appropiate, Orientated x3, Agitated, Anxious Other Systems: Reviewed and Negative Patient History - Patient Medical History Hx Anemia: Yes (Not on medication) Hx Asthma: No Hx Chronic Obstructive Pulmonary Disease (COPD): No Hx Cancer: No Hx Cardiac Disorders: No Hx Congestive Heart Failure: No Hx Hypertension: No Hx Hypercholesterolemia: No Hx Pacemaker: No HX Cerebrovascular Accident: No Hx Seizures: No Hx Dementia: No Hx Diabetes: No Hx Gastrointestinal Disorders: Yes (Pt has a hx of GERD.) Hx Liver Disease: No Hx Genitourinary Disorders: No Hx Sexually Transmitted Disorders: No Hx Renal Disease (ESRD): No Hx Thyroid Disease: No Hx Human Immunodeficiency Virus (HIV): No (NEGATIVE 2017) Hx Hepatitis C: No (negative) Hx Depression: Yes Hx Suicide Attempt: No (pt denies) Hx Bipolar Disorder: No Hx Schizophrenia: No - Patient Surgical History Past Surgical History: Yes Hx Neurologic Surgery: No Hx Cataract Extraction: No Hx Cardiac Surgery: No Hx Lung Surgery: No Hx Breast Surgery: No Hx Breast Biopsy: No Hx Abdominal Surgery: No Hx Appendectomy: No Hx Cholecystectomy: No Hx Genitourinary Surgery: No Hx Section: No Hx Orthopedic Surgery: Yes (ARTHROSCOPIC SX OF left KNEE DUE TO SPORT INJURY A TEEN) Other Surgical History: MEDIALSTERNOSCOPY DUE TO SEVERE ?GERD FEW YEARS AGO Anesthesia Reaction: No - PPD History Previous Implant?: Yes Documented Results: Negative w/proof Implanted On Prior R Admission?: Yes Date: 01/02/18 Results: 0 mm PPD to be Administered?: No - Reproductive History Patient is a Female of Child Bearing Age (11 -55 yrs old): No - Smoking Cessation Smoking history: Current every day smoker Have you smoked in the past 12 months: Yes Aproximately how many cigarettes per day: 5 Cigars Per Day: 0 Hx Chewing Tobacco Use: No Initiated information on smoking cessation: Yes 'Breaking Loose' booklet given: 10/18/18 - Substance & Tx. History Hx Alcohol Use: Yes Hx Substance Use: Yes Substance Use Type: Alcohol, Marijuana Hx Substance Use Treatment: Yes ([facility] - Substances abused Alcohol Substance route: Oral Frequency: Daily Amount used: 1 pint, 2 -16 ounce Age of first use: 23 Date of last use: 10/17/18 Marijuana/Hashish Substance route: Smoking Frequency: Daily Amount used: $5-10 Age of first use: 18 Date of last use: 10/17/18 Family Disease History - Family Disease History Family Disease History: Heart Disease: Mother (EMPHESEMA/ASTHMA-), Respiratory: Mother, Other: Sister Admission Physical Exam [facility] - Vital Signs Vital Signs: Vital Signs - 24 hr 10/18/18 11:05 Temperature 97.0 F L Pulse Rate 55 L Respiratory 26 H Rate Blood Pressure 148/96 - Physical General Appearance: Yes: Appropriately Dressed, Moderate Distress, Tremorous, Irritable, Sweating, Anxious HEENTM: Yes: Hearing grossly Normal, Normal Voice, Nasal Congestion, Rhinorrhea Respiratory: Yes: Lungs Clear, Normal Breath Sounds, No Respiratory Distress Neck: Yes: No masses,lesions,Nodules Breast: Yes: Within Normal Limits Cardiology: Yes: Regular Rhythm, Regular Rate, S1, S2 Abdominal: Yes: Normal Bowel Sounds, Non Tender, Flat Genitourinary: Yes: Within Normal Limits Back: Yes: Normal Inspection Musculoskeletal: Yes: full range of Motion Extremities: Yes: Normal Capillary Refill, Normal Inspection, Tremors Neurological: Yes: Fully Oriented, Alert, Normal Response Integumentary: Yes: Normal Color, Diaphoresis Lymphatic: Yes: Within Normal Limits - Diagnostic (1) Alcohol dependence with uncomplicated withdrawal Current Visit: Yes Status: Chronic (2) Depression Current Visit: No Status: Acute (3) History of anemia Current Visit: No Status: Suspected (4) Nicotine dependence Current Visit: Yes Status: Chronic Qualifiers: Nicotine product type: cigarettes Substance use status: uncomplicated Qualified Code(s): F17.210 - Nicotine dependence, cigarettes, uncomplicated (5) GERD (gastroesophageal reflux disease) Current Visit: Yes Status: Chronic Qualifiers: Esophagitis presence: without esophagitis Qualified Code(s): K21.9 - Gastro -esophageal reflux disease without esophagitis (6) HTN (hypertension) Current Visit: Yes Status: Chronic Qualifiers: Hypertension type: essential hypertension Qualified Code(s): I10 - Essential (primary) hypertension (7) Substance induced mood disorder Current Visit: No Status: Suspected Cleared for Admission [facility] - Detox or Rehab [facility] Level of Care: Medically Managed Detox Regimen/Protocol: Librium Breathalyzer - Breathalyzer Breathalyzer: 0 Urine Drug Screen - Test Device Lot number: [id number] Expiration date: 07/08/20 - Control Is test valid?: Yes - Results Drug screen NEGATIVE: No Urine drug screen results: THC-Marijuana, BZO-Benzodiazepines Inpatient Rehab Admission - Rehab Decision to Admit Inpatient rehab admission?: No
[2018-10-18] MEDS ORDERED: ACETAMINOPHEN 325 MG TABLET (FP) PO PRN ×2 (12:30)
[2018-10-18] MEDS ORDERED: MAGNESIUM HYDROX 2400MG/30ML ORAL SUSPENSION 30 ML CUP PO PRN (12:30)
[2018-10-18] MEDS ORDERED: chlordiazePOXIDE HCL 25 MG CAPSULE PO PRN (12:30)
[2018-10-18] MEDS ORDERED: hydrOXYzine PAMOATE 25 MG CAPSULE (FP) PO PRN (12:30)
[2018-10-18] MEDS ORDERED: DICYCLOMINE HCL 10 MG CAPSULE PO PRN (12:30)
[2018-10-18] MEDS ORDERED: NICOTINE POLACRILEX 4 MG GUM BUC PRN (12:30)
[2018-10-18] MEDS ORDERED: MAG HYDROX/AL HYDROX/SIMETH 30 ML UNIT-DOSE CUP PO PRN (12:30)
[2018-10-18] MEDS ORDERED: ONDANSETRON *ODT* 4 MG TABLET SL PRN (12:30)
[2018-10-18] MEDS ORDERED: MAGNESIUM CITRATE 300 ML BOTTLE PO PRN (12:30)
[2018-10-18] MEDS ORDERED: MELATONIN 5 MG TABLETS PO PRN (12:30)
[2018-10-18] MEDS ORDERED: IBUPROFEN 400 MG TABLET (FP) PO PRN (12:30)
[2018-10-18] MEDS ORDERED: METHOCARBAMOL 500 MG TABLET PO PRN (12:30)
[2018-10-18] MEDS ORDERED: MENTHOL/PHENOL 1 EACH UD MM PRN (12:30)
[2018-10-18] MEDS ORDERED: chlordiazePOXIDE HCL 25 MG CAPSULE PO ONE (13:45)
[2018-10-18] MEDS: chlordiazePOXIDE HCL 25 MG CAPSULE PO SCH ×2 (17:52→22:31)
[2018-10-18] MEDS ORDERED: THIAMINE HCL 100 MG TABLET (FP) PO SCH (22:00)
[2018-10-19] MEDS: chlordiazePOXIDE HCL 25 MG CAPSULE PO SCH ×2 (07:29→10:30)
[2018-10-19] MEDS ORDERED: PRENATAL VITAMINS W/ FOLIC ACID TABLET (FP) PO SCH (10:00)
[2018-10-19] MEDS ORDERED: NICOTINE 21 MG/24 HOURS TOPICAL PATCH TD SCH (10:00)
[2018-10-19 10:36] LABS: BILIRUBIN,TOTAL 0.6 mg/dL (0.2-1); CALCIUM 8.5 mg/dL (8.5-10.1); CREATININE 0.8 mg/dL (0.55-1.3); POTASSIUM 3.7 mmol/L (3.5-5.1); TOT PROT 5.7 g/dl (6.4-8.2)
--- NOTE | 2018-10-19 10:48 | PN ---
[facility] CIWA - CIWA Score Nausea/Vomitin Muscle Tremors: 2 Anxiety: 2 Agitation: 2 Paroxysmal Sweats: 1-Minimal Palms Moist Orientation: 0-Oriented Tacttile Disturbances: 1-Very Mild Itch/Numbness Auditory Disturbances: 1-Very Mild Visual Disturbances: 0-None Headache: 2-Mild CIWA-Ar Total Score: 13 [facility] Progress Note (SOAP) Subjective: alert,irritable,anxious,interrupted sleep,tremor Objective: 10/19/18 10:46 Vital Signs Temperature 97.5 F L 10/19/18 09:58 Pulse Rate 75 10/19/18 09:58 Respiratory Rate 18 10/19/18 09:58 Blood Pressure 123/65 10/19/18 09:58 O2 Sat by Pulse Oximetry (%) Assessment: 10/19/18 10:47 withdrawal symptom labs pending Plan: continue detox
[2018-10-19 10:54] LABS: HEMOGLOBIN 8.6 GM/dL (11.7-16.9); MCH 23.9 pg (25.7-33.7); MCHC 30.7 g/dl (32.0-35.9); MEAN CELL VOLUME 77.8 fl (80-96); MEAN PLT VOLUME 7.4 fl (7.5-11.1); PLATELET COUNT 477 K/MM3 (134-434); RDW 20.9 % (11.9-15.9); WHITE BLOOD COUNT 8.2 K/mm3 (4.0-10.0)
--- NOTE | 2018-10-19 12:51 | EKG ---
Test Reason : Blood Pressure : / mmHG Vent. Rate : 072 BPM Atrial Rate : 072 BPM P-R Int : 118 ms QRS Dur : 098 ms QT Int : 410 ms P-R-T Axes : 042 031 083 degrees QTc Int : 448 ms NORMAL SINUS RHYTHM T WAVE ABNORMALITY, CONSIDER ANTERIOR ISCHEMIA ABNORMAL ECG Confirmed by Carlos Hayes MD ([id number]) on 10/19/2018 12:51:08 PM Referred By: Confirmed By:Carlos Hayes MD
[2018-10-19 14:30] VITALS: BP 135/67; PULSE 84; TEMP 97
--- NOTE | 2018-10-19 14:35 | PN ---
[facility] Progress Note Note: patient did not want to complete treatment due to personal problem,all attempts to convince patient to stay with no avail, high risk of relapsing explained,patient understood,patient signed release ama, left nit in good condition,advise to call [phone] or go to nearest emergency room if not feeling well,
--- NOTE | 2018-10-19 14:39 | DS ---
[facility] Detox Discharge Summary Admission Date: 10/18/18 Discharge Date: 10/19/18 - History Present History: Alcohol Dependence Additional Comments: patient signed release ama for personal problem Pertinent Past History: anemia gerd hypertension nicotine dependence - Physical Exam Results Vital Signs: Vital Signs Temperature 97.0 F L 10/19/18 14:29 Pulse Rate 84 10/19/18 14:29 Respiratory Rate 18 10/19/18 14:29 Blood Pressure 135/67 10/19/18 14:29 O2 Sat by Pulse Oximetry (%) Pertinent Admission Physical Exam Findings: withdrawal signs and symptom Vital Signs Temperature 97.0 F L 10/19/18 14:29 Pulse Rate 84 10/19/18 14:29 Respiratory Rate 18 10/19/18 14:29 Blood Pressure 135/67 10/19/18 14:29 O2 Sat by Pulse Oximetry (%) Laboratory Last Values WBC 8.2 K/mm3 (4.0-10.0) 10/19/18 07:00 RBC 3.60 M/mm3 (4.00-5.60) L 10/19/18 07:00 Hgb 8.6 GM/dL (11.7-16.9) L 10/19/18 07:00 Hct 28.0 % (35.4-49) L 10/19/18 07:00 MCV 77.8 fl (80-96) L 10/19/18 07:00 MCH 23.9 pg (25.7-33.7) L 10/19/18 07:00 MCHC 30.7 g/dl (32.0-35.9) L 10/19/18 07:00 RDW 20.9 % (11.9-15.9) H 10/19/18 07:00 Plt Count 477 K/MM3 (134-434) H 10/19/18 07:00 MPV 7.4 fl (7.5-11.1) L 10/19/18 07:00 Sodium 143 mmol/L (136-145) 10/19/18 07:00 Potassium 3.7 mmol/L (3.5-5.1) 10/19/18 07:00 Chloride 107 mmol/L (98-107) 10/19/18 07:00 Carbon Dioxide 30 mmol/L (21-32) 10/19/18 07:00 Anion Gap 6 MMOL/L (8-16) L 10/19/18 07:00 BUN 8.0 mg/dL (7-18) 10/19/18 07:00 Creatinine 0.8 mg/dL (0.55-1.3) 10/19/18 07:00 Est GFR (CKD-EPI)AfAm 120.72 10/19/18 07:00 Est GFR (CKD-EPI)NonAf 104.16 10/19/18 07:00 Random Glucose 85 mg/dL (74-106) 10/19/18 07:00 Calcium 8.5 mg/dL (8.5-10.1) 10/19/18 07:00 Total Bilirubin 0.6 mg/dL (0.2-1) 10/19/18 07:00 AST 12 U/L (15-37) L 10/19/18 07:00 ALT 21 U/L (13-61) 10/19/18 07:00 Alkaline Phosphatase 67 U/L (45-117) 10/19/18 07:00 Total Protein 5.7 g/dl (6.4-8.2) L 10/19/18 07:00 Albumin 3.0 g/dl (3.4-5.0) L 10/19/18 07:00 HIV 1&2 Antibody Screen Negative 10/19/18 07:00 HIV P24 Antigen Negative 10/19/18 07:00 rpr pending - Medication Discharge Medications: Ambulatory Orders NK [No Known Home Medication] 10/18/18 - AMA Did Patient Leave Against Medical Advice: Yes
[2018-10-19] MEDS ORDERED: chlordiazePOXIDE HCL 25 MG CAPSULE PO SCH (17:00)
[2018-10-19] MEDS ORDERED: FERROUS SO4 325 MG TABLET (FP) PO SCH (17:30)
[2018-10-19] MEDS ORDERED: RANITIDINE HCL 150 MG TABLET (FP) PO SCH (22:00)
[2018-10-20] MEDS ORDERED: chlordiazePOXIDE HCL 10 MG CAPSULE PO SCH (17:00)
[2018-10-21] MEDS ORDERED: chlordiazePOXIDE HCL 10 MG CAPSULE PO SCH (17:00)
== END 2018-10-19 14:42 | disposition left against medical advice (07) | DRG 770 ==
LOC: YASAS 10:59 → Y6N 12:59
PROVIDERS: ADMIT Surgery; ATTEND Surgery
PROC: HZ2ZZZZ Detoxification Services for Substance Abuse Treatment (ICD-10-PCS; principal; 2018-10-18)
DX: F10.230 Alcohol dependence with withdrawal, uncomplicated (principal); F12.20 Cannabis dependence, uncomplicated; F17.210 Nicotine dependence, cigarettes, uncomplicated; F32.9 Major depressive disorder, single episode, unspecified; F19.24 Other psychoactive substance dependence with psychoactive substance-induced mood disorder; I10 Essential (primary) hypertension; K21.9 Gastro-esophageal reflux disease without esophagitis; D64.9 Anemia, unspecified
CPT/HCPCS: 36415; 80053; 85027; 86593; 87389; 93005; 93010

== ENCOUNTER 2020-08-23 01:12 | Inpatient (IN) | payer OTHER ==
[2020-08-23 02:51] VITALS: BMI 23.6
[2020-08-23] MEDS ORDERED: NICOTINE POLACRILEX 2 MG GUM BC PRN (05:39)
[2020-08-23] MEDS ORDERED: guaiFENesin 200 MG/10 ML 10 ML UNIT-DOSE CUPS PO PRN (05:39)
[2020-08-23] MEDS ORDERED: P-EPHED 60MG/TRIPROLIDI 2.5MG TABLET PO PRN (05:39)
[2020-08-23] MEDS ORDERED: LOPERAMIDE HCL 2 MG CAPSULE PO PRN (05:39)
[2020-08-23] MEDS ORDERED: MAGNESIUM HYDROX 2400MG/30ML ORAL SUSPENSION 30 ML CUP PO PRN (05:39)
[2020-08-23] MEDS ORDERED: MAGNESIUM CITRATE 300 ML BOTTLE PO PRN (05:39)
[2020-08-23] MEDS ORDERED: TUBERCULIN PPD 5 TU/0.1ML VIAL ID ONE (06:22)
[2020-08-23] MEDS: PRENATAL VITAMINS W/ FOLIC ACID TABLET (FP) PO SCH (10:01)
[2020-08-23] MEDS: NICOTINE 14 MG/24 HOURS TOPICAL PATCH TD SCH (10:02)
[2020-08-23 11:04] LABS: HEMATOCRIT 30.9 % (35.4-49); HEMOGLOBIN 9.6 GM/dL (11.7-16.9); MCH 23.7 pg (25.7-33.7); MCHC 31.1 g/dl (32.0-35.9); MEAN CELL VOLUME 76.3 fl (80-96); MEAN PLT VOLUME 6.8 fl (7.5-11.1); PLATELET COUNT 513 K/MM3 (134-434); RBC 4.05 M/mm3 (4.00-5.60); RDW 17.8 % (11.9-15.9); WHITE BLOOD COUNT 9.2 K/mm3 (4.0-10.0)
[2020-08-23 11:12] LABS: CALCIUM 9.1 mg/dL (8.5-10.1)
[2020-08-23 11:13] LABS: ALBUMIN 3.8 g/dl (3.4-5.0); BLOOD UREA NITROGEN 19.9 mg/dL (7-18)
[2020-08-23 11:16] LABS: CREATININE 1.1 mg/dL (0.55-1.3)
[2020-08-23 11:18] LABS: BILIRUBIN,TOTAL 0.4 mg/dL (0.2-1); TOT PROT 7.1 g/dl (6.4-8.2)
[2020-08-23 18:37] LABS: PH,URINE 6.5 (5.0-8.0); URINE APPEARANCE CLEAR; URINE BILIRUBIN NEGATIVE (NEGATIVE); URINE COLOR YELLOW; URINE GLUCOSE (UA) NEGATIVE (NEGATIVE); URINE KETONE TRACE (NEGATIVE); URINE LEUK ESTERASE NEGATIVE (NEGATIVE); URINE NITRITE NEGATIVE (NEGATIVE); URINE PROTEIN TRACE (NEGATIVE)
[2020-08-23] MEDS: THIAMINE HCL 100 MG TABLET (FP) PO SCH (21:56)
[2020-08-23] MEDS: MELATONIN 5 MG TABLETS PO SCH (21:56)
[2020-08-24] MEDS: PRENATAL VITAMINS W/ FOLIC ACID TABLET (FP) PO SCH (10:11)
[2020-08-24] MEDS: NICOTINE 14 MG/24 HOURS TOPICAL PATCH TD SCH (10:12)
[2020-08-24] MEDS: MELATONIN 5 MG TABLETS PO SCH (22:37)
[2020-08-24] MEDS: THIAMINE HCL 100 MG TABLET (FP) PO SCH (22:38)
[2020-08-25] MEDS: PRENATAL VITAMINS W/ FOLIC ACID TABLET (FP) PO SCH (10:10)
[2020-08-25] MEDS: NICOTINE 14 MG/24 HOURS TOPICAL PATCH TD SCH (10:10)
[2020-08-25] MEDS: hydrOXYzine PAMOATE 25 MG CAPSULE (FP) PO PRN (21:24)
[2020-08-25] MEDS: THIAMINE HCL 100 MG TABLET (FP) PO SCH (21:24)
[2020-08-25] MEDS: MELATONIN 5 MG TABLETS PO SCH (21:24)
[2020-08-26] MEDS: PRENATAL VITAMINS W/ FOLIC ACID TABLET (FP) PO SCH (09:58)
[2020-08-26] MEDS: NICOTINE 14 MG/24 HOURS TOPICAL PATCH TD SCH (09:58)
[2020-08-26] MEDS: IBUPROFEN 400 MG TABLET (FP) PO PRN (19:15)
[2020-08-26] MEDS: THIAMINE HCL 100 MG TABLET (FP) PO SCH (21:18)
[2020-08-26] MEDS: MELATONIN 5 MG TABLETS PO SCH (21:18)
[2020-08-26] MEDS: ACETAMINOPHEN 325 MG TABLET (FP) PO PRN (21:18)
[2020-08-27 04:22] LABS: SARS-CoV-2 NAA Not Detected (Not Detected)
[2020-08-27] MEDS: NICOTINE 14 MG/24 HOURS TOPICAL PATCH TD SCH (10:33)
[2020-08-27] MEDS: PRENATAL VITAMINS W/ FOLIC ACID TABLET (FP) PO SCH (10:33)
[2020-08-27] MEDS: MELATONIN 5 MG TABLETS PO SCH (21:46)
[2020-08-27] MEDS: THIAMINE HCL 100 MG TABLET (FP) PO SCH (21:47)
[2020-08-28] MEDS: PRENATAL VITAMINS W/ FOLIC ACID TABLET (FP) PO SCH (10:14)
[2020-08-28] MEDS: NICOTINE 14 MG/24 HOURS TOPICAL PATCH TD SCH (10:14)
[2020-08-28] MEDS: IBUPROFEN 400 MG TABLET (FP) PO PRN (14:23)
[2020-08-28] MEDS: MAG HYDROX/AL HYDROX/SIMETH 30 ML UNIT-DOSE CUP PO PRN (14:25)
[2020-08-28] MEDS: PANTOPRAZOLE 20 MG TABLET PO SCH (15:41)
[2020-08-28] MEDS: MELATONIN 5 MG TABLETS PO SCH (21:45)
[2020-08-28] MEDS: THIAMINE HCL 100 MG TABLET (FP) PO SCH (21:45)
[2020-08-29] MEDS: PRENATAL VITAMINS W/ FOLIC ACID TABLET (FP) PO SCH (10:22)
[2020-08-29] MEDS: NICOTINE 14 MG/24 HOURS TOPICAL PATCH TD SCH (10:23)
[2020-08-29] MEDS: PANTOPRAZOLE 20 MG TABLET PO SCH (10:23)
[2020-08-29] MEDS: MELATONIN 5 MG TABLETS PO SCH (21:36)
[2020-08-29] MEDS: THIAMINE HCL 100 MG TABLET (FP) PO SCH (21:36)
[2020-08-30] MEDS: PANTOPRAZOLE 20 MG TABLET PO SCH (10:27)
[2020-08-30] MEDS: PRENATAL VITAMINS W/ FOLIC ACID TABLET (FP) PO SCH (10:27)
[2020-08-30] MEDS: NICOTINE 14 MG/24 HOURS TOPICAL PATCH TD SCH (10:27)
[2020-08-30] MEDS: IBUPROFEN 400 MG TABLET (FP) PO PRN ×2 (10:28→21:10)
[2020-08-30] MEDS ORDERED: ALBUTEROL SO4 HFA INHALER IH PRN (12:23)
[2020-08-30] MEDS: MAG HYDROX/AL HYDROX/SIMETH 30 ML UNIT-DOSE CUP PO PRN (19:55)
[2020-08-30] MEDS: THIAMINE HCL 100 MG TABLET (FP) PO SCH (21:10)
[2020-08-30] MEDS: MELATONIN 5 MG TABLETS PO SCH (21:10)
[2020-08-31] MEDS: PRENATAL VITAMINS W/ FOLIC ACID TABLET (FP) PO SCH (10:07)
[2020-08-31] MEDS: PANTOPRAZOLE 20 MG TABLET PO SCH (10:08)
[2020-08-31] MEDS: NICOTINE 14 MG/24 HOURS TOPICAL PATCH TD SCH (10:08)
[2020-08-31] MEDS: MELATONIN 5 MG TABLETS PO SCH (21:22)
[2020-08-31] MEDS: THIAMINE HCL 100 MG TABLET (FP) PO SCH (21:22)
[2020-09-01] MEDS: MAG HYDROX/AL HYDROX/SIMETH 30 ML UNIT-DOSE CUP PO PRN (03:21)
[2020-09-01] MEDS: PRENATAL VITAMINS W/ FOLIC ACID TABLET (FP) PO SCH (09:54)
[2020-09-01] MEDS: PANTOPRAZOLE 20 MG TABLET PO SCH (09:54)
[2020-09-01] MEDS: NICOTINE 14 MG/24 HOURS TOPICAL PATCH TD SCH (09:54)
[2020-09-01] MEDS: THIAMINE HCL 100 MG TABLET (FP) PO SCH (21:10)
[2020-09-01] MEDS: hydrOXYzine PAMOATE 25 MG CAPSULE (FP) PO PRN (21:10)
[2020-09-01] MEDS: MELATONIN 5 MG TABLETS PO SCH (21:10)
[2020-09-02] MEDS: PRENATAL VITAMINS W/ FOLIC ACID TABLET (FP) PO SCH (10:14)
[2020-09-02] MEDS: PANTOPRAZOLE 20 MG TABLET PO SCH (10:15)
[2020-09-02] MEDS: NICOTINE 14 MG/24 HOURS TOPICAL PATCH TD SCH (10:15)
[2020-09-02] MEDS: MELATONIN 5 MG TABLETS PO SCH (21:44)
[2020-09-02] MEDS: THIAMINE HCL 100 MG TABLET (FP) PO SCH ×2 (21:44→22:20)
[2020-09-02] MEDS: IBUPROFEN 400 MG TABLET (FP) PO PRN (21:45)
[2020-09-03] MEDS: PRENATAL VITAMINS W/ FOLIC ACID TABLET (FP) PO SCH (09:48)
[2020-09-03] MEDS: PANTOPRAZOLE 20 MG TABLET PO SCH (09:48)
[2020-09-03] MEDS: NICOTINE 14 MG/24 HOURS TOPICAL PATCH TD SCH (09:48)
[2020-09-03] MEDS: IBUPROFEN 400 MG TABLET (FP) PO PRN (20:03)
[2020-09-03] MEDS: THIAMINE HCL 100 MG TABLET (FP) PO SCH (21:10)
[2020-09-03] MEDS: MELATONIN 5 MG TABLETS PO SCH (21:10)
[2020-09-03] MEDS: ACETAMINOPHEN 325 MG TABLET (FP) PO PRN (21:11)
[2020-09-04] MEDS: NICOTINE 14 MG/24 HOURS TOPICAL PATCH TD SCH (09:57)
[2020-09-04] MEDS: PRENATAL VITAMINS W/ FOLIC ACID TABLET (FP) PO SCH (09:57)
[2020-09-04] MEDS: PANTOPRAZOLE 20 MG TABLET PO SCH (09:57)
[2020-09-04] MEDS: IBUPROFEN 400 MG TABLET (FP) PO PRN (09:58)
[2020-09-04] MEDS ORDERED: MASKS NR ONE (19:57)
[2020-09-04] MEDS: THIAMINE HCL 100 MG TABLET (FP) PO SCH (21:12)
[2020-09-04] MEDS: MELATONIN 5 MG TABLETS PO SCH (21:12)
[2020-09-05] MEDS: PRENATAL VITAMINS W/ FOLIC ACID TABLET (FP) PO SCH (10:01)
[2020-09-05] MEDS: PANTOPRAZOLE 20 MG TABLET PO SCH (10:01)
[2020-09-05] MEDS: NICOTINE 14 MG/24 HOURS TOPICAL PATCH TD SCH (10:29)
[2020-09-05] MEDS: THIAMINE HCL 100 MG TABLET (FP) PO SCH (21:20)
[2020-09-05] MEDS: MELATONIN 5 MG TABLETS PO SCH (21:20)
[2020-09-05] MEDS: IBUPROFEN 400 MG TABLET (FP) PO PRN (21:21)
[2020-09-06] MEDS: PRENATAL VITAMINS W/ FOLIC ACID TABLET (FP) PO SCH (09:57)
[2020-09-06] MEDS: PANTOPRAZOLE 20 MG TABLET PO SCH (09:58)
[2020-09-06] MEDS: NICOTINE 14 MG/24 HOURS TOPICAL PATCH TD SCH (09:58)
[2020-09-06] MEDS: THIAMINE HCL 100 MG TABLET (FP) PO SCH (21:28)
[2020-09-06] MEDS: MELATONIN 5 MG TABLETS PO SCH (21:28)
[2020-09-07] MEDS ORDERED: PT OWN MED DRAWER 7, Y5N ONE (08:30)
[2020-09-07] MEDS: PRENATAL VITAMINS W/ FOLIC ACID TABLET (FP) PO SCH (09:42)
[2020-09-07] MEDS: NICOTINE 14 MG/24 HOURS TOPICAL PATCH TD SCH (09:43)
[2020-09-07] MEDS: PANTOPRAZOLE 20 MG TABLET PO SCH (09:43)
[2020-09-07] MEDS: MELATONIN 5 MG TABLETS PO SCH (21:10)
[2020-09-07] MEDS: THIAMINE HCL 100 MG TABLET (FP) PO SCH (21:10)
[2020-09-08] MEDS: NICOTINE 14 MG/24 HOURS TOPICAL PATCH TD SCH (09:36)
[2020-09-08] MEDS: PRENATAL VITAMINS W/ FOLIC ACID TABLET (FP) PO SCH (09:36)
[2020-09-08] MEDS: PANTOPRAZOLE 20 MG TABLET PO SCH (09:36)
[2020-09-08] MEDS: THIAMINE HCL 100 MG TABLET (FP) PO SCH (21:07)
[2020-09-08] MEDS: MELATONIN 5 MG TABLETS PO SCH (21:07)
[2020-09-09] MEDS: PANTOPRAZOLE 20 MG TABLET PO SCH (09:36)
[2020-09-09] MEDS: NICOTINE 14 MG/24 HOURS TOPICAL PATCH TD SCH (09:36)
[2020-09-09] MEDS: PRENATAL VITAMINS W/ FOLIC ACID TABLET (FP) PO SCH (09:36)
[2020-09-09] MEDS: IBUPROFEN 400 MG TABLET (FP) PO PRN ×2 (09:37→21:12)
[2020-09-09] MEDS: MELATONIN 5 MG TABLETS PO SCH (21:11)
[2020-09-09] MEDS: THIAMINE HCL 100 MG TABLET (FP) PO SCH (21:11)
[2020-09-10] MEDS: NICOTINE 14 MG/24 HOURS TOPICAL PATCH TD SCH (09:44)
[2020-09-10] MEDS: PANTOPRAZOLE 20 MG TABLET PO SCH (09:44)
[2020-09-10] MEDS: PRENATAL VITAMINS W/ FOLIC ACID TABLET (FP) PO SCH (09:44)
[2020-09-10] MEDS: MELATONIN 5 MG TABLETS PO SCH (21:18)
[2020-09-10] MEDS: THIAMINE HCL 100 MG TABLET (FP) PO SCH (21:18)
[2020-09-11] MEDS: PRENATAL VITAMINS W/ FOLIC ACID TABLET (FP) PO SCH (10:05)
[2020-09-11] MEDS: PANTOPRAZOLE 20 MG TABLET PO SCH (10:05)
[2020-09-11] MEDS: NICOTINE 14 MG/24 HOURS TOPICAL PATCH TD SCH (10:05)
[2020-09-11] MEDS: MELATONIN 5 MG TABLETS PO SCH (21:25)
[2020-09-11] MEDS: THIAMINE HCL 100 MG TABLET (FP) PO SCH (21:25)
[2020-09-12] MEDS: PRENATAL VITAMINS W/ FOLIC ACID TABLET (FP) PO SCH (10:16)
[2020-09-12] MEDS: PANTOPRAZOLE 20 MG TABLET PO SCH (10:16)
[2020-09-12] MEDS: NICOTINE 14 MG/24 HOURS TOPICAL PATCH TD SCH (10:16)
[2020-09-12] MEDS: MELATONIN 5 MG TABLETS PO SCH (21:12)
[2020-09-12] MEDS: THIAMINE HCL 100 MG TABLET (FP) PO SCH (21:12)
[2020-09-13] MEDS: PANTOPRAZOLE 20 MG TABLET PO SCH (10:10)
[2020-09-13] MEDS: NICOTINE 14 MG/24 HOURS TOPICAL PATCH TD SCH (10:10)
[2020-09-13] MEDS: PRENATAL VITAMINS W/ FOLIC ACID TABLET (FP) PO SCH (10:10)
[2020-09-13] MEDS: THIAMINE HCL 100 MG TABLET (FP) PO SCH (21:38)
[2020-09-13] MEDS: MELATONIN 5 MG TABLETS PO SCH (21:38)
[2020-09-14] MEDS: NICOTINE 14 MG/24 HOURS TOPICAL PATCH TD SCH (10:19)
[2020-09-14] MEDS: PANTOPRAZOLE 20 MG TABLET PO SCH (10:19)
[2020-09-14] MEDS: PRENATAL VITAMINS W/ FOLIC ACID TABLET (FP) PO SCH (10:19)
[2020-09-14] MEDS: THIAMINE HCL 100 MG TABLET (FP) PO SCH (21:18)
[2020-09-14] MEDS: MELATONIN 5 MG TABLETS PO SCH (21:18)
[2020-09-15] MEDS: NICOTINE 14 MG/24 HOURS TOPICAL PATCH TD SCH (10:17)
[2020-09-15] MEDS: PANTOPRAZOLE 20 MG TABLET PO SCH (10:17)
[2020-09-15] MEDS: PRENATAL VITAMINS W/ FOLIC ACID TABLET (FP) PO SCH (10:17)
[2020-09-15] MEDS: THIAMINE HCL 100 MG TABLET (FP) PO SCH (21:28)
[2020-09-15] MEDS: MELATONIN 5 MG TABLETS PO SCH (21:28)
[2020-09-16] MEDS: NICOTINE 14 MG/24 HOURS TOPICAL PATCH TD SCH (09:44)
[2020-09-16] MEDS: PRENATAL VITAMINS W/ FOLIC ACID TABLET (FP) PO SCH (09:44)
[2020-09-16] MEDS: PANTOPRAZOLE 20 MG TABLET PO SCH (09:44)
[2020-09-16] MEDS: IBUPROFEN 400 MG TABLET (FP) PO PRN (09:45)
[2020-09-16] MEDS: THIAMINE HCL 100 MG TABLET (FP) PO SCH (21:43)
[2020-09-16] MEDS: MELATONIN 5 MG TABLETS PO SCH (21:43)
[2020-09-17 07:10] VITALS: BP 138/94; PULSE 93; TEMP 97.3
[2020-09-17] MEDS ORDERED: IBUPROFEN 600 MG TABLET (FP) PO PRN (09:38)
[2020-09-17] MEDS: PANTOPRAZOLE 40 MG TABLET PO SCH (10:25)
[2020-09-17] MEDS: PRENATAL VITAMINS W/ FOLIC ACID TABLET (FP) PO SCH (10:25)
[2020-09-17] MEDS: ACETAMINOPHEN 325 MG TABLET (FP) PO PRN (10:27)
[2020-09-17] MEDS: MAG HYDROX/AL HYDROX/SIMETH 30 ML UNIT-DOSE CUP PO PRN (10:27)
[2020-09-17] MEDS: NICOTINE 14 MG/24 HOURS TOPICAL PATCH TD SCH (10:42)
[2020-09-17] MEDS: METHOCARBAMOL 500 MG TABLET PO SCH ×4 (12:18→21:14)
[2020-09-17] MEDS: MELATONIN 5 MG TABLETS PO SCH (21:14)
[2020-09-17] MEDS: THIAMINE HCL 100 MG TABLET (FP) PO SCH (21:14)
[2020-09-18] MEDS: PRENATAL VITAMINS W/ FOLIC ACID TABLET (FP) PO SCH (10:17)
[2020-09-18] MEDS: PANTOPRAZOLE 40 MG TABLET PO SCH (10:17)
[2020-09-18] MEDS: NICOTINE 14 MG/24 HOURS TOPICAL PATCH TD SCH (10:17)
[2020-09-18] MEDS: METHOCARBAMOL 500 MG TABLET PO SCH ×4 (10:17→21:21)
[2020-09-18] MEDS: THIAMINE HCL 100 MG TABLET (FP) PO SCH (21:21)
[2020-09-18] MEDS: MELATONIN 5 MG TABLETS PO SCH (21:21)
[2020-09-19] MEDS: PANTOPRAZOLE 40 MG TABLET PO SCH (10:02)
[2020-09-19] MEDS: PRENATAL VITAMINS W/ FOLIC ACID TABLET (FP) PO SCH (10:02)
[2020-09-19] MEDS: METHOCARBAMOL 500 MG TABLET PO SCH ×4 (10:02→21:08)
[2020-09-19] MEDS: NICOTINE 14 MG/24 HOURS TOPICAL PATCH TD SCH (10:03)
[2020-09-19] MEDS: THIAMINE HCL 100 MG TABLET (FP) PO SCH (21:08)
[2020-09-19] MEDS: MELATONIN 5 MG TABLETS PO SCH (21:08)
== END 2020-09-20 04:30 | DRG 772 ==
LOC: YASAS 01:12 → Y3W 04:48
PROVIDERS: ADMIT Allergy & Immunology; ATTEND Allergy & Immunology
PROC: HZ42ZZZ Group Counseling for Substance Abuse Treatment, Cognitive-Behavioral (ICD-10-PCS; principal; 2020-08-23)
DX: F10.20 Alcohol dependence, uncomplicated (principal); F14.20 Cocaine dependence, uncomplicated; F19.20 Other psychoactive substance dependence, uncomplicated; F17.210 Nicotine dependence, cigarettes, uncomplicated; F19.282 Other psychoactive substance dependence with psychoactive substance-induced sleep disorder; F19.280 Other psychoactive substance dependence with psychoactive substance-induced anxiety disorder; F19.24 Other psychoactive substance dependence with psychoactive substance-induced mood disorder; F31.9 Bipolar disorder, unspecified; F41.8 Other specified anxiety disorders; F43.10 Post-traumatic stress disorder, unspecified; R45.851 Suicidal ideations; B35.1 Tinea unguium; D64.9 Anemia, unspecified; I10 Essential (primary) hypertension; K42.9 Umbilical hernia without obstruction or gangrene; K40.20 Bilateral inguinal hernia, without obstruction or gangrene, not specified as recurrent; Z86.79 Personal history of other diseases of the circulatory system
CPT/HCPCS: 36415; 80053; 81003; 85027; 86780; 93005; 93010; C9803; U0003; U0005